=== PATIENT | female | born 1965 | race Caucasian/White ===

== ENCOUNTER → 2016-05-23 | Outpatient (CLI) | payer BC ==
--- NOTE | 2016-05-24 11:11 | MM ---
Reason for exam: screening (asymptomatic). Last mammogram was performed 1 year and 3 months ago. History: Patient is postmenopausal. Took progesterone for 1 year 6 months beginning at age 36. Physical Findings: A clinical breast exam by your physician is recommended on an annual basis and results should be correlated with mammographic findings. MG Screening Mammo w CAD Bilateral CC and MLO view(s) were taken. Prior study comparison: February 08, 2015, bilateral MG screening mammo w CAD. February 02, 2014, bilateral MG screening mammo w CAD. There are scattered fibroglandular densities. No significant changes when compared with prior studies. ASSESSMENT: Negative, BI-RAD 1 RECOMMENDATION: Routine screening mammogram of both breasts in 1 year.
== END ==
LOC: RADMAMWWP 07:46
PROVIDERS: ATTEND Obstetrics & Gynecology
DX: Z12.31 Encounter for screening mammogram for malignant neoplasm of breast (principal)

== ENCOUNTER → 2017-07-14 | Outpatient (CLI) | payer BC ==
--- NOTE | 2017-07-16 12:13 | MM ---
Reason for exam: screening (asymptomatic). Last mammogram was performed 1 year and 2 months ago. History: Patient is postmenopausal. Took progesterone for 1 year 6 months beginning at age 36. Physical Findings: A clinical breast exam by your physician is recommended on an annual basis and results should be correlated with mammographic findings. MG Screening Mammo w CAD Bilateral CC and MLO view(s) were taken. Prior study comparison: May 23, 2016, bilateral MG screening mammo w CAD. February 08, 2015, bilateral MG screening mammo w CAD. There are scattered fibroglandular densities. No suspicious abnormality. No significant changes when compared with prior studies. ASSESSMENT: Negative, BI-RAD 1 RECOMMENDATION: Routine screening mammogram of both breasts in 1 year.
== END | disposition home or self-care (01) ==
LOC: RADMAMWWP 11:50
PROVIDERS: ATTEND Obstetrics & Gynecology
DX: Z12.31 Encounter for screening mammogram for malignant neoplasm of breast (principal)
CPT/HCPCS: 77067

== ENCOUNTER → 2018-07-19 | Outpatient (CLI) | payer BC ==
--- NOTE | 2018-07-22 09:11 | MM ---
Reason for exam: screening (asymptomatic). Last mammogram was performed 1 year ago. History: Patient is postmenopausal. Took progesterone for 1 year 6 months beginning at age 36. Physical Findings: A clinical breast exam by your physician is recommended on an annual basis and results should be correlated with mammographic findings. MG Screening Mammo w CAD Bilateral CC and MLO view(s) were taken. Prior study comparison: July 14, 2017, bilateral MG screening mammo w CAD. May 23, 2016, bilateral MG screening mammo w CAD. The breast tissue is heterogeneously dense. This may lower the sensitivity of mammography. There is no discrete abnormality. ASSESSMENT: Negative, BI-RAD 1 RECOMMENDATION: Routine screening mammogram of both breasts in 1 year.
== END | disposition home or self-care (01) ==
LOC: RADMAMWWP 08:04
PROVIDERS: ATTEND Obstetrics & Gynecology
DX: Z12.31 Encounter for screening mammogram for malignant neoplasm of breast (principal)
CPT/HCPCS: 77067

== ENCOUNTER → 2019-10-31 | Outpatient (CLI) | payer BC ==
--- NOTE | 2019-11-04 08:20 | MM ---
Reason for exam: screening (asymptomatic). Last mammogram was performed 1 year and 3 months ago. History: Patient is postmenopausal. Took progesterone for 1 year 6 months beginning at age 36. Physical Findings: A clinical breast exam by your physician is recommended on an annual basis and results should be correlated with mammographic findings. MG Screening Mammo w CAD Bilateral CC and MLO view(s) were taken. Prior study comparison: July 19, 2018, bilateral MG screening mammo w CAD. July 14, 2017, bilateral MG screening mammo w CAD. There are scattered fibroglandular densities. There is chronic nodularity in the right breast. No significant changes when compared with prior studies. ASSESSMENT: Benign, BI-RAD 2 RECOMMENDATION: Routine screening mammogram of both breasts in 1 year.
== END | disposition home or self-care (01) ==
LOC: RADMAMWWP 15:42
PROVIDERS: ATTEND Obstetrics & Gynecology
DX: Z12.31 Encounter for screening mammogram for malignant neoplasm of breast (principal)
CPT/HCPCS: 77067

== ENCOUNTER 2020-07-01 06:51 | Day surgery (SDC) | payer BC ==
[2020-06-30 12:07] VITALS: BMI 32.5
[~2020-07-01 06:51] MED LIST: LACTATED RINGERS 1,000 ML IV SCH
[2020-07-01 07:15] VITALS: RESP 16; TEMP 97
[2020-07-01 07:31] LABS: Glucose,Whole Blood 124 mg/dL (75-99)
[2020-07-01] MEDS ORDERED: PROPOFOL 10 MG/ML 20 ML VIAL IV ONE (07:48)
--- NOTE | 2020-07-01 07:54 | P.GSHP ---
History of Present Illness H&P Date: 07/01/20 Chief Complaint: Diverticulitis Subjective 54-year-old female with history of diverticulitis. Patient presents today for colonoscopy. Past Medical History Past Medical History: Diabetes Mellitus, Hyperlipidemia, Hypertension Additional Past Medical History / Comment(s): TYPE 2 DIABETIC History of Any Multi-Drug Resistant Organisms: None Reported Past Surgical History: Section, Orthopedic Surgery, Uterine Ablation Additional Past Surgical History / Comment(s): ovarian cyst removal C SECECTION X2, RIGHT CARPAL TUNNEL RELEASE, LEFT CARPAL TUNNEL RELEASE, LEFT ELBOW SURGERY Past Anesthesia/Blood Transfusion Reactions: No Reported Reaction Smoking Status: Never smoker - Past Family History Brother(s) Family Medical History: Cancer Medications and Allergies Home Medications Medication Instructions Recorded Confirmed Type Aspirin 81 mg PO DAILY 06/30/20 06/30/20 History Dextroamphetamine/Amphetamine 30 mg PO BID 06/30/20 06/30/20 History [Adderall] Pravastatin Sodium [Pravachol] 40 mg PO HS 06/30/20 06/30/20 History Semaglutide [Ozempic] 1 mg SQ LAWTON 06/30/20 06/30/20 History Sertraline [Zoloft] 100 mg PO HS 06/30/20 06/30/20 History atenoloL [Atenolol] 50 mg PO BID 06/30/20 06/30/20 History Allergies Allergy/AdvReac Type Severity Reaction Status Date / Time No Known Allergies Allergy Verified 07/01/20 07:16 Surgical - Exam Vital Signs Temp Pulse Resp BP Pulse Ox 97 F L 70 16 174/89 97 07/01/20 07:13 07/01/20 07:13 07/01/20 07:13 07/01/20 07:13 07/01/20 07:13 - General well developed, well nourished, no distress - Eyes PERRL - ENT normal pinna - Neck no masses - Respiratory normal expansion - Cardiovascular Rhythm: regular - Abdomen Abdomen: soft, non tender Results - Labs Abnormal Lab Results - Last 24 Hours (Table) 07/01/20 Range/Units 07:21 POC Glucose (mg/dL) 124 H (75-99) mg/dL Assessment and Plan Assessment: Diverticulitis. We'll perform colonoscopy.
--- NOTE | 2020-07-01 08:08 | P.OP ---
Date of Procedure: 07/01/20 Preoperative Diagnosis: Diverticulitis Postoperative Diagnosis: Diverticulitis Procedure(s) Performed: Colonoscopy Anesthesia: MAC Surgeon: Anderson Hargrove Pathology: other (Sigmoid colon biopsied 25 cm) Condition: stable Disposition: PACU Description of Procedure: The patient's placed on the endoscopy table in the lateral position. She received IV sedation. Digital rectal exam was performed which revealed no abnormalities. Flexible colonoscope was then placed patient anus passed throughout the entire colon. The ileocecal valve sutures. The cecum, ascending and transverse colon appeared normal. The descending colon appeared normal. In the sigmoid colon there is diverticulosis seen. At the 25 cm hugo there was a mucosal inflammatory changes was biopsied with cold forcep. Scope was then brought back the rectum this appeared normal. Scope was withdrawn for patient.
[2020-07-01] MEDS ORDERED: hydrALAZINE HCL 20 MG/ML 1 ML VIAL ONE (08:49)
[2020-07-01] MEDS ORDERED: hydrALAZINE HCL 20 MG/ML 1 ML VIAL IVP ONE ×2 (08:50→08:53)
[2020-07-01 08:59] VITALS: BP 169/83; PULSE 78
== END 2020-07-01 09:12 | disposition home or self-care (01) ==
LOC: ORWHC2ENDO 06:51
PROVIDERS: ATTEND Surgery
DX: K57.32 Diverticulitis of large intestine without perforation or abscess without bleeding (principal); K57.30 Diverticulosis of large intestine without perforation or abscess without bleeding; E11.9 Type 2 diabetes mellitus without complications; E78.5 Hyperlipidemia, unspecified; I10 Essential (primary) hypertension; Z98.891 History of uterine scar from previous surgery; Z98.890 Other specified postprocedural states; Z80.9 Family history of malignant neoplasm, unspecified; F90.9 Attention-deficit hyperactivity disorder, unspecified type; F41.9 Anxiety disorder, unspecified; F32.9 Major depressive disorder, single episode, unspecified; Z79.82 Long term (current) use of aspirin; Z79.899 Other long term (current) drug therapy
CPT/HCPCS: 88305; 45380; J0360; J2704

== ENCOUNTER → 2020-07-16 | Outpatient (CLI) | payer BC ==
[2020-07-16 11:09] LABS: HCT 45.5 % (34.0-46.0); HGB 15.3 gm/dL (11.4-16.0); MCH 29.4 pg (25.0-35.0); MCHC 33.8 g/dL (31.0-37.0); MCV 87.1 fL (80.0-100.0); Mean Platelet Volume 6.4; Platelet Count 231 k/uL (150-450); RBC 5.22 m/uL (3.80-5.40); RDW 13.6 % (11.5-15.5); WBC 9.4 k/uL (3.8-10.6)
[2020-07-16 11:29] LABS: Potassium 4.3 mmol/L (3.5-5.1)
== END | disposition home or self-care (01) ==
LOC: LABPAT 09:23
PROVIDERS: ATTEND Surgery
DX: Z01.812 Encounter for preprocedural laboratory examination (principal); K57.33 Diverticulitis of large intestine without perforation or abscess with bleeding
CPT/HCPCS: 80051; 85027; 93005

== ENCOUNTER 2020-07-21 08:52 | Inpatient (IN) | payer BC ==
[~2020-07-21 08:52] MED LIST changes: +ACETAMINOPHEN TAB 500 MG TAB PO PRN; +DEXAMETHASONE SOD PHOSPHATE 4 MG/ML 1 ML VIAL IV PRN; +HEPARIN SODIUM,PORCINE 5,000 UNIT/ML 1 ML VIAL SQ PRN; +HYDROmorphone 0.5 MG/0.5 ML SYRINGE IVP PRN; -LACTATED RINGERS 1,000 ML IV SCH; +LIDOCAINE 1% (10MG/ML) FOR IV START INTRADERMA PRN; +MIDAZOLAM 2 MG/2 ML VIAL IV PRN; +ONDANSETRON 4 MG/2 ML VIAL IVP PRN; +fentaNYL (PF) 50 MCG/ML 2 ML AMP IVP PRN; +metroNIDAZOLE-NS PMX 500 MG in SALINE 1 100ML.BAG IVPB PRN
[2020-07-21] MEDS: LACTATED RINGERS 1,000 ML IV SCH ×2 (09:11→20:19)
[2020-07-21 09:25] LABS: Glucose,Whole Blood 238 mg/dL (75-99)
[2020-07-21] MEDS ORDERED: ACETAMINOPHEN IV (For NPO) 1,000 MG/100 ML VIAL IVPB ONE (09:41)
[2020-07-21] MEDS ORDERED: INSULIN ASPART (NovoLOG) 100 UNIT/ML VIAL SQ ONE (10:29)
--- NOTE | 2020-07-21 10:44 | P.GSHP ---
History of Present Illness H&P Date: 07/21/20 Chief Complaint: Diverticulitis This is a 54-year-old female with history of chronic diverticulitis. Patient rents today for low anterior section. Patient is aware the risks of colostomy. Past Medical History Past Medical History: Diabetes Mellitus, Hyperlipidemia, Hypertension Additional Past Medical History / Comment(s): DIVERTICULITIS. TYPE 2 DIABETIC History of Any Multi-Drug Resistant Organisms: None Reported Past Surgical History: Section, Orthopedic Surgery, Uterine Ablation Additional Past Surgical History / Comment(s): ovarian cyst removal C SECECTION X2, RIGHT CARPAL TUNNEL RELEASE, LEFT CARPAL TUNNEL RELEASE, LEFT ELBOW SURGERY Past Anesthesia/Blood Transfusion Reactions: No Reported Reaction Past Psychological History: ADD/ADHD, Anxiety, Depression Smoking Status: Never smoker Past Alcohol Use History: Occasional Past Drug Use History: None Reported - Past Family History Brother(s) Family Medical History: Cancer Medications and Allergies Home Medications Medication Instructions Recorded Confirmed Type Aspirin 81 mg PO DAILY 06/30/20 07/21/20 History Dextroamphetamine/Amphetamine 30 mg PO BID 06/30/20 07/21/20 History [Adderall] Pravastatin Sodium [Pravachol] 40 mg PO HS 06/30/20 07/21/20 History Semaglutide [Ozempic] 1 mg SQ LAWTON 06/30/20 07/21/20 History Sertraline [Zoloft] 100 mg PO HS 06/30/20 07/21/20 History atenoloL [Atenolol] 50 mg PO BID 06/30/20 07/21/20 History Allergies Allergy/AdvReac Type Severity Reaction Status Date / Time No Known Allergies Allergy Verified 07/21/20 09:09 Surgical - Exam Vital Signs Temp Pulse Resp BP Pulse Ox 97.4 F L 84 16 179/81 96 07/21/20 09:06 07/21/20 09:06 07/21/20 09:06 07/21/20 09:06 07/21/20 09:06 - General well developed, well nourished, no distress - Eyes PERRL - ENT normal pinna - Neck no masses - Respiratory normal expansion - Cardiovascular Rhythm: regular - Abdomen Abdomen: soft, non tender Results - Labs Abnormal Lab Results - Last 24 Hours (Table) 07/21/20 Range/Units 09:21 POC Glucose (mg/dL) 238 H (75-99) mg/dL Assessment and Plan Assessment: History of diverticular placed. We'll perform low anterior resection.
[2020-07-21] MEDS ORDERED: SUCCINYLCHOLINE CHLORIDE 100 MG/5 ML SYR IV ONE (11:06)
[2020-07-21] MEDS ORDERED: ROCURONIUM 10 MG/ML (5 ML VIAL) IV ONE (11:06)
[2020-07-21] MEDS ORDERED: fentaNYL (PF) 50 MCG/ML 2 ML AMP ONE (11:06)
[2020-07-21] MEDS ORDERED: NEOSTIGMINE 1 MG/ML 10 ML VIAL ONE (11:06)
[2020-07-21] MEDS ORDERED: LIDOCAINE 1% INJ 10MG/ML (20 ML MDV) ONE (11:06)
[2020-07-21] MEDS ORDERED: GLYCOPYRROLATE 0.2 MG/ML 2 ML VIAL ONE (11:06)
[2020-07-21] MEDS ORDERED: KETAMINE 10 MG/ML 20 ML VIAL ONE (11:06)
[2020-07-21] MEDS ORDERED: PHENYLEPHRINE-0.9% NACL SYG 1,000 MCG/10 ML SYRINGE ONE (11:06)
[2020-07-21] MEDS ORDERED: PROPOFOL 10 MG/ML 20 ML VIAL IV ONE (11:06)
[2020-07-21] MEDS ORDERED: NALOXONE 0.4 MG/ML 1 ML VIAL IV PRN (11:43)
--- NOTE | 2020-07-21 11:46 | P.ANPRN ---
Procedure Note - Anesthesia - Epidural/Spinal Epidural Continuous Time Out Performed: Yes Date of Procedure: 07/21/20 Procedure Start Time: 09:58 Procedure Stop Time: 10:16 Location of Patient: PreOp Indication: Acute Post-Operative Pain, Requested by Surgeon Sedation Type: Sedate with meaningful contact maintained Preparation: Sterile Dressing Position: Sitting Catheter: Indwelling Needle Guage: 18 Injectate: Test Dose Lidocaine1.5% w/1:200,000 epi Blood Aspirated: No Pain Paresthesia on Injection Noted: No Events: Uneventful and Well Tolerated (test dose 3cc given)
[2020-07-21] MEDS ORDERED: LACTATED RINGERS 1,000 ML IV ONE (11:49)
[2020-07-21] MEDS ORDERED: HYDROmorphone 1 MG/ML 1 ML SYRINGE IVP PRN (12:50)
[2020-07-21] MEDS ORDERED: METOCLOPRAMIDE 5 MG/ML 2 ML VIAL IVP PRN (12:50)
[2020-07-21] MEDS ORDERED: BENZOCAINE/MENTHOL LOZENG 1 EACH LOZENGE MUCOUS MEM PRN (12:50)
[2020-07-21] MEDS ORDERED: ONDANSETRON 4 MG/2 ML VIAL IVP PRN (12:50)
--- NOTE | 2020-07-21 12:50 | P.OP ---
Date of Procedure: 07/21/20 Preoperative Diagnosis: Diverticulitis Postoperative Diagnosis: Diverticulitis Incisional hernia Procedure(s) Performed: Low anterior section Partial omentectomy Repair of incisional hernia Anesthesia: ISIDRA Surgeon: Anderson Hargrove Estimated Blood Loss (ml): 100 Pathology: other (Sigmoid colon, omentum) Condition: stable Disposition: PACU Description of Procedure: The patient's placed on the operating table in supine position. She received general anesthesia. Her abdomen was prepped and draped in sterile fashion. She had been placed in dorsal 5 position. The area was entered through a low midline incision. There is evidence of incisional hernia related to previous Pfannenstiel incision. The abdomen was entered. The Bookwalter tract placed a wound. There were adhesions to the abdominal wall these were lysed with sharp dissection. There also adhesions the small bowel pelvis. These were lysed. At this point the; was mobilized by dividing the white line of Toldt in the left colon was also mobilized. The area diverticula is could be visualized distal sigmoid. At this point a enterotomy is made in the sigmoid colon and the 25 mm EEA stapler was placed into the colon. The colon was then transected and the EEA stapler was driven through the staple line. There enterotomy is closed with 3-0 GI silk suture. The mesentery the bowel was then divided using the Enseal device. The mesorectum was divided with insulin I's. And then the rectum was transected with the EEA stapler. The assistant manager bilingual then placed the EEA stapler patient's anus and the spike was driven through the rectal staple line. The endoscope to the stapler the stapler is then closed and fired and 2 intact tissue rings were withdrawn from the stapler. The anastomosis was checked under air insufflation. There is no unsteady leak. There is bleeding. No bleeding seen. The omentum was examined the omentum appeared to be partially nonviable and a segment of omentum was transected with the incidental device and sent to pathology. The fascia was then closed with looped #1 PDS suture. Skin was closed ayan. Patient top she will was sent to recovery room stable condition.
[2020-07-21 13:13] LABS: Glucose,Whole Blood 185 mg/dL (75-99)
[2020-07-21] MEDS: ROPIVACAINE 250 MG, HYDROMORPHONE (PF) 5 MG in SODIUM CHLORIDE 0.9% 200 ML EPIDURAL PRN (13:18)
[2020-07-21] MEDS: FAMOTIDINE 20 MG/2 ML VIAL IV SCH (21:10)
[2020-07-21] MEDS: D5-0.45% NACL WITH KCL 20MEQ/L 1,000 ML IV SCH (21:10)
[2020-07-21] MEDS: atenoloL 25 MG TAB PO SCH (21:35)
--- NOTE | 2020-07-21 22:03 | P.CONS ---
History of Present Illness - Reason for Consult Consult date: 07/21/20 Medical management Requesting physician: Anderson Hargrove - Chief Complaint Abdominal surgery - History of Present Illness Consultation: This is a pleasant 54-year-old patient of Dr. an. Chronic stable medical conditions include diabetes type 2, hypertension, hyperlipidemia. Patient the prior history of Dr. Zayas. Also has not anxiety depression. Patient has: T tom low anterior resection, partial omentectomy, repair of incisional hernia. Postprocedure sitting up in a chair. Has an epidural in place. No nausea vomiting. Some pain at the operative site. Review of systems: GEN.: Tired EYES: None HEENT: None NECK: None RESPIRATORY: None CARDIOVASCULAR: None GASTROINTESTINAL: [As above GENITOURINARY: None MUSCULOSKELETAL: None LYMPHATICS: None HEMATOLOGICAL: None PSYCHIATRY: None NEUROLOGICAL: None Past medical history to include: Diabetes, hypertension, hyperlipidemia, diverticulitis, anxiety depression Social history: Does not smoke or drink alcohol occasionally. . Physical examination: VITAL SIGNS: 98.3, 87, 15, 125 [place] 7, 94% on room air GENERAL: BMI 32.1, sitting up in chair, right. Epidural in place EYES: Pupils equal. Conjunctiva normal. HEENT: External appearance of nose and ears normal, oral cavity grossly normal. NECK: JVD not raised; masses not palpable. HEART: First and second heart sounds are normal; no edema. LUNGS: Respiratory rate normal; clear to auscultation. ABDOMEN: Soft, tender, dressing in place, decreased bowel sounds, liver spleen not palpable, no masses palpable. PSYCH: Alert and oriented x3; mood and affect normal. NEUROLOGICAL: Cranial nerves grossly intact; no facial asymmetry, power and sensation grossly intact. LYMPHATICS: No lymph nodes palpable in the axilla and neck INVESTIGATIONS, reviewed in the clinical context: Accu-Cheks to 38, 185 Previous testing: White count 9.4 hemoglobin 15.3 potassium 4.3 Assessment and plan: -Low anterior resection for prior history of diverticulitis -Obesity BMI 32.1 -Diabetes mellitus type 2, follow Accu-Cheks patient takes was empiric -Hyperlipidemia, continue Pravachol -Essential hypertension, continue atenolol -Anxiety depression otherwise specified, continue with Zoloft, Patient getting IV fluids. Venodyne boots for DVT prophylaxis. Epidural for pain control. Care was discussed with the patient. Questions answered. Thank you Dr. Hargrove Past Medical History Past Medical History: Diabetes Mellitus, Hyperlipidemia, Hypertension Additional Past Medical History / Comment(s): DIVERTICULITIS. TYPE 2 DIABETIC History of Any Multi-Drug Resistant Organisms: None Reported Past Surgical History: Section, Orthopedic Surgery, Uterine Ablation Additional Past Surgical History / Comment(s): ovarian cyst removal C SECECTION X2, RIGHT CARPAL TUNNEL RELEASE, LEFT CARPAL TUNNEL RELEASE, LEFT ELBOW SURGERY Past Anesthesia/Blood Transfusion Reactions: No Reported Reaction Past Psychological History: ADD/ADHD, Anxiety, Depression Smoking Status: Never smoker Past Alcohol Use History: Occasional Past Drug Use History: None Reported - Past Family History Brother(s) Family Medical History: Cancer Medications and Allergies Home Medications Medication Instructions Recorded Confirmed Type Aspirin 81 mg PO DAILY 06/30/20 07/21/20 History Dextroamphetamine/Amphetamine 30 mg PO BID 06/30/20 07/21/20 History [Adderall] Pravastatin Sodium [Pravachol] 40 mg PO HS 06/30/20 07/21/20 History Semaglutide [Ozempic] 1 mg SQ LAWTON 06/30/20 07/21/20 History Sertraline [Zoloft] 100 mg PO HS 06/30/20 07/21/20 History atenoloL [Atenolol] 50 mg PO BID 06/30/20 07/21/20 History Allergies Allergy/AdvReac Type Severity Reaction Status Date / Time No Known Allergies Allergy Verified 07/21/20 09:09 Physical Exam Vitals: Vital Signs Temp Pulse Resp BP Pulse Ox 07/21/20 20:21 98.3 F 87 15 125/67 94 L 07/21/20 17:30 83 18 120/60 98 07/21/20 16:30 89 16 131/66 97 07/21/20 15:30 95 16 128/66 96 07/21/20 15:00 92 16 127/63 96 07/21/20 14:30 86 16 144/71 97 07/21/20 14:15 84 16 153/66 96 07/21/20 14:00 83 16 152/67 96 07/21/20 13:45 80 16 172/77 96 07/21/20 13:30 80 16 162/73 100 07/21/20 13:15 75 16 163/73 100 07/21/20 13:04 97.6 F 71 14 184/81 99 07/21/20 10:15 73 16 144/65 96 07/21/20 09:06 97.4 F L 84 16 179/81 96 Intake and Output 07/21/20 07/21/20 07/21/20 06:59 14:59 22:59 Intake Total 1207 800 Output Total 402 700 Balance 805 100 Intake: IV 1207 800 Output: Urine 202 700 Estimated Blood Loss 200 Other: Weight 84.7 kg Results Labs: Abnormal Lab Results - Last 24 Hours (Table) 07/21/20 07/21/20 Range/Units 09:21 13:11 POC Glucose (mg/dL) 238 H 185 H (75-99) mg/dL
[2020-07-21] MEDS: HEPARIN SODIUM,PORCINE 5,000 UNIT/ML 1 ML VIAL SQ SCH (23:58)
[2020-07-22] MEDS: D5-0.45% NACL WITH KCL 20MEQ/L 1,000 ML IV SCH ×2 (04:07→14:34)
--- NOTE | 2020-07-22 06:46 | P.PN ---
Progress Note - Text Patient without complaints. Still NPO. Denies headache or weakness. Pain 2/10. Epidural at 6 ml/hr. Epidural site clean and dry. POD#1 s/p LAR. Assessment and plan: will continue epidural
[2020-07-22 07:21] LABS: Glucose,Whole Blood 153 mg/dL (75-99)
[2020-07-22] MEDS: atenoloL 25 MG TAB PO SCH ×2 (08:01→20:40)
[2020-07-22] MEDS: HEPARIN SODIUM,PORCINE 5,000 UNIT/ML 1 ML VIAL SQ SCH ×3 (08:01→23:34)
[2020-07-22] MEDS: ASPIRIN 81 MG PO SCH (08:01)
[2020-07-22] MEDS: FAMOTIDINE 20 MG/2 ML VIAL IV SCH ×2 (08:01→20:40)
[2020-07-22] MEDS: ALVIMOPAN 12 MG CAPSULE PO SCH ×2 (08:01→20:40)
[2020-07-22] MEDS ORDERED: Dextroamphetamine/Amphetamine [Adderall] 30 MG Tablet PO SCH (09:00)
[2020-07-22 11:05] LABS: Basophils # (A) 0.03 X 10*3/uL (0.00-0.10); Basophils % (A) 0.2 %; Eosinophils # (A) 0.01 X 10*3/uL (0.04-0.35); Eosinophils % (A) 0.1 %; HCT 38.7 % (37.2-46.3); HGB 12.5 g/dL (12.0-15.0); Lymphocytes # (A) 2.07 X 10*3/uL (0.90-5.00); Lymphocytes % (A) 13.1 %; MCH 29.4 pg (27.0-32.0); MCHC 32.3 g/dL (32.0-37.0); MCV 91.1 fL (80.0-97.0); Mean Platelet Volume 9.6 fL (9.5-12.2); Monocytes # (A) 1.25 X 10*3/uL (0.20-1.00); Monocytes % (A) 7.9 %; Neutrophils % (A) 78.3 %; Platelet Count 260 X 10*3/uL (140-440); RBC 4.25 X 10*6/uL (4.10-5.20); RDW 13.6 % (11.5-14.5); WBC 15.83 X 10*3/uL (4.50-10.00)
[2020-07-22 11:27] LABS: African American GFR (CKD) 95.5 (60.0-200.0); Albumin 4.1 g/dL (3.80-4.90); Albumin/Globulin Ratio 1.95 (1.60-3.17); Anion Gap 11.1 mmol/L (4.00-12.00); BUN/Creat Ratio 18.75 Ratio (12.00-20.00); Calcium 8.9 mg/dL (8.7-10.3); Carbon Dioxide 24.9 mmol/L (21.6-31.8); Globulin 2.1 g/dL (1.6-3.3); Non-African American GFR(CKD) 82.4 (60.0-200.0); Potassium 4.4 mmol/L (3.5-5.5); Total Bilirubin 0.6 mg/dL (0.2-1.2); Total Protein 6.2 g/dL (6.2-8.2)
[2020-07-22] MEDS ORDERED: diphenhydrAMINE ELIXIR 25 MG/10 ML CUP PO PRN (13:11)
--- NOTE | 2020-07-22 13:13 | P.PN ---
Subjective Progress Note Date: 07/22/20 CHIEF COMPLAINT: Diverticulitis HISTORY OF PRESENT ILLNESS: Patient is status post lower anterior resection, partial omentectomy and repair of incisional hernia for diverticulitis and incisional hernia. She is postop day #1. She has epidural in place. She reports that her pain is controlled. She did have some nausea which has improved. She denies any gas or bowel movement. She is currently on clear liquids. Patient is complaining of itching likely due to the epidural. Patient has refused the entereg. She reports that she does not like to take pills. Afebrile. WBC 15.83 Hgb 12.5 creatinine 0.8 AST 47 PHYSICAL EXAM: VITAL SIGNS: Reviewed. GENERAL: Well-developed in no acute distress. HEENT: No sclera icterus. Extraocular movements grossly intact. Moist buccal mucosa. Head is atraumatic, normocephalic. ABDOMEN: Soft. Nondistended. Nontender. NEUROLOGIC: Alert and oriented. Cranial nerves II through XII grossly intact. ASSESSMENT: 1. Diverticulitis and incisional hernia status post lower anterior resection, partial omentectomy and repair of incisional hernia 2. Leukocytosis possibly reactive patient did get a dose of IV dexamethasone 3. History of diabetes mellitus type 2 PLAN: -Continue epidural for pain control -Continue Fleming catheter -Encourage incentive spirometer use -Continue IV fluids . We'll change IV fluids to normal saline. Patient does have elevated blood sugars possibly related to D5 in the IV fluids and history of diabetes. -Add Humalog insulin sliding scale -GI prophylaxis Pepcid and DVT prophylaxis subcu heparin Physician Newspaper Manager note has been reviewed by physician. Signing provider agrees with the documented findings, assessment, and plan of care. Objective - Vital Signs Vital signs: Vital Signs Temp 98.4 F 07/22/20 07:45 Pulse 93 07/22/20 07:45 Resp 16 07/22/20 07:45 BP 109/66 07/22/20 07:45 Pulse Ox 92 L 07/22/20 07:45 Intake & Output 07/21/20 07/22/20 07/22/20 18:59 06:59 18:59 Intake Total 2006 Output Total 1102 300 Balance 905 -300 Weight 84.7 kg 84.7 kg Intake: IV 2006 Output: Urine 902 300 Estimated Blood Loss 200 Other: Voiding Method Indwelling Catheter Indwelling Catheter - Labs CBC & Chem 7: 07/22/20 06:52 07/22/20 06:52 Labs: Abnormal Lab Results - Last 24 Hours (Table) 07/21/20 07/22/20 07/22/20 Range/Units 13:11 06:52 06:52 WBC 15.83 H (4.50-10.00) X 10*3/uL Immature Gran # 0.07 H (0.00-0.04) X 10*3/uL Neutrophils # 12.40 H (1.80-7.70) X 10*3/uL Monocytes # 1.25 H (0.20-1.00) X 10*3/uL Eosinophils # 0.01 L (0.04-0.35) X 10*3/uL Glucose 170 H (70-110) mg/dL POC Glucose (mg/dL) 185 H (75-99) mg/dL AST 47 H (13-35) U/L 07/22/20 Range/Units 07:08 WBC (4.50-10.00) X 10*3/uL Immature Gran # (0.00-0.04) X 10*3/uL Neutrophils # (1.80-7.70) X 10*3/uL Monocytes # (0.20-1.00) X 10*3/uL Eosinophils # (0.04-0.35) X 10*3/uL Glucose (70-110) mg/dL POC Glucose (mg/dL) 153 H (75-99) mg/dL AST (13-35) U/L
[2020-07-22] MEDS: SODIUM CHLORIDE 0.9% 1,000 ML IV SCH ×2 (15:04→20:40)
[2020-07-22] MEDS: PIPERACILLIN-TAZOBACTAM 3.375 GM in SODIUM CHLORIDE 0.9% 100 ML IVPB SCH ×2 (16:22→23:34)
[2020-07-22 17:44] LABS: Glucose,Whole Blood 108 mg/dL (75-99)
[2020-07-22] MEDS: INSULIN ASPART (NovoLOG) 100 UNIT/ML VIAL SQ SCH ×2 (19:01→20:42)
[2020-07-22] MEDS: LACTATED RINGERS 1,000 ML IV SCH (19:01)
[2020-07-22] MEDS: SERTRALINE 100 MG TAB PO SCH (20:40)
[2020-07-22] MEDS: PRAVASTATIN SODIUM 40 MG TAB PO SCH (20:40)
[2020-07-22 20:50] LABS: Glucose,Whole Blood 78 mg/dL (75-99)
--- NOTE | 2020-07-22 21:27 | P.PN ---
Progress Note - Text Progress Note Date: 07/22/20 - Chief Complaint Abdominal surgery Consultation: This is a pleasant 54-year-old patient of Dr. an. Chronic stable medical conditions include diabetes type 2, hypertension, hyperlipidemia. anxiety depression. Patient has: Today low anterior resection, partial omentectomy, repair of incisional hernia. Postprocedure sitting up in a chair. Has an epidural in place. Today-sitting up in a chair. Epidural in place. Pain control. No flatus. Started on clear liquids. Review of systems: Was done for constitutional, cardiovascular, GI, pulmonary. relevant finding as above Active Medications Alvimopan (Alvimopan 12 Mg Capsule) 12 mg PO BID [facility] Stop: 07/28/20 21:01 Last Admin: 07/22/20 20:40 Dose: 12 mg Documented by: Aspirin (Aspirin 81 Mg) 81 mg PO DAILY [facility] Last Admin: 07/22/20 08:01 Dose: 81 mg Documented by: Atenolol (Atenolol 25 Mg Tab) 50 mg PO BID [facility] Last Admin: 07/22/20 20:40 Dose: 50 mg Documented by: Benzocaine/Menthol (Benzocaine/Menthol Lozeng 1 Each Lozenge) 1 each MUCOUS MEM Q1HR PRN PRN Reason: Sore Throat Diphenhydramine HCl (Diphenhydramine Elixir 25 Mg/10 Ml Cup) 25 mg PO BID PRN PRN Reason: Itching Last Admin: 07/22/20 15:04 Dose: 25 mg Documented by: Famotidine (Famotidine 20 Mg/2 Ml Vial) 20 mg IV BID [facility] Last Admin: 07/22/20 20:40 Dose: 20 mg Documented by: Heparin Sodium (Porcine) (Heparin Sodium,Porcine 5,000 Unit/Ml 1 Ml Vial) 5,000 unit SQ Q8HR [facility] Last Admin: 07/22/20 16:22 Dose: 5,000 unit Documented by: Hydromorphone HCl (Hydromorphone 1 Mg/Ml 1 Ml Syringe) 1 mg IVP Q3HR PRN PRN Reason: Severe Pain Lactated Ringer's (Lactated Ringers) 1,000 mls @ 20 mls/hr IV .Q24H [facility] Last Admin: 07/22/20 19:01 Dose: Not Given Documented by: Ropivacaine 250 mg/Hydromorphone HCl 5 mg/ Sodium Chloride 250 mls @ 0 mls/hr EPIDURAL .Q0M PRN; Protocol PRN Reason: Pain Control Last Admin: 07/21/20 13:18 Dose: 57 mls Documented by: Sodium Chloride (Saline 0.9%) 1,000 mls @ 125 mls/hr IV .Q8H [facility] Last Admin: 07/22/20 20:40 Dose: Not Given Documented by: Piperacillin Sod/Tazobactam (Sod 3.375 gm/ Sodium Chloride) 100 mls @ 25 mls/hr IVPB Q8HR [facility] Last Admin: 07/22/20 16:22 Dose: 25 mls/hr Documented by: Insulin Aspart (Insulin Aspart (Novolog) 100 Unit/Ml Vial) 0 unit SQ [facility]; Protocol Last Admin: 07/22/20 20:42 Dose: Not Given Documented by: Lidocaine HCl (Lidocaine 1% (10mg/Ml) For Iv Start) 0.1 ml INTRADERMA PER PROTOCOL PRN PRN Reason: IV Start Last Admin: 07/21/20 09:11 Dose: 0.1 ml Documented by: Metoclopramide HCl (Metoclopramide 5 Mg/Ml 2 Ml Vial) 10 mg IVP Q6HR PRN PRN Reason: Nausea and Vomiting Last Admin: 07/21/20 21:35 Dose: 10 mg Documented by: Naloxone HCl (Naloxone 0.4 Mg/Ml 1 Ml Vial) 0.2 mg IV Q2M PRN PRN Reason: Opioid Reversal Semaglutide [Ozempic ] 1 Mg/0.75 Ml Pen. Injctr 1 mg SQ Galvan@0900 [facility] Ondansetron HCl (Ondansetron 4 Mg/2 Ml Vial) 4 mg IVP Q8HR PRN PRN Reason: Nausea And Vomiting Pravastatin Sodium (Pravastatin Sodium 40 Mg Tab) 40 mg PO [facility] Last Admin: 07/22/20 20:40 Dose: 40 mg Documented by: Sertraline HCl (Sertraline 100 Mg Tab) 100 mg PO [facility] Last Admin: 07/22/20 20:40 Dose: 100 mg Documented by: Past medical history to include: Diabetes, hypertension, hyperlipidemia, diverticulitis, anxiety depression Social history: Does not smoke or drink alcohol occasionally. . Physical examination: VITAL SIGNS: 98.4, 93, 16, 109/66, 92% on room air GENERAL: , sitting up in chair, right. Epidural in place EYES: Pupils equal. Conjunctiva normal. HEENT: External appearance of nose and ears normal, oral cavity grossly normal. NECK: JVD not raised; masses not palpable. HEART: First and second heart sounds are normal; no edema. LUNGS: Respiratory rate normal; clear to auscultation. ABDOMEN: Soft, tender, dressing in place, decreased bowel sounds, liver spleen not palpable, no masses palpable. PSYCH: Alert and oriented x3; mood and affect normal. INVESTIGATIONS, reviewed in the clinical context: July 22: WBC 15.8 hemoglobin 12.5 potassium 4.4 creatinine 0.8 Accu-Cheks to 38, 185 Previous testing: White count 9.4 hemoglobin 15.3 potassium 4.3 Assessment and plan: -Low anterior resection for prior history of diverticulitis, with epidural in place -Obesity BMI 32.1 -Diabetes mellitus type 2, follow Accu-Cheks patient takes Ozempic -Hyperlipidemia, continue Pravachol -Essential hypertension, continue atenolol -Anxiety depression otherwise specified, continue with Zoloft, -Leukocytosis from surgery. No clinical evidence of infection Care was discussed with the patient. Continue current treatment plan Thank you Dr. Hargrove
[2020-07-22] MEDS: ROPIVACAINE 250 MG, HYDROMORPHONE (PF) 5 MG in SODIUM CHLORIDE 0.9% 200 ML EPIDURAL PRN (22:52)
[2020-07-23] MEDS: SODIUM CHLORIDE 0.9% 1,000 ML IV SCH ×3 (04:44→22:39)
[2020-07-23 07:06] LABS: Glucose,Whole Blood 171 mg/dL (75-99)
--- NOTE | 2020-07-23 07:42 | P.PN ---
Progress Note - Text Progress Note Date: 07/23/20 Anesthesia Postop day 2 Status post oh anterior resection with epidural day 3 Patient seen and examined. Doing well without current complaint. VAS 2 out of 10. No nausea or vomiting. Mild pruritustolerable with meds. Ropivacaine 0.1% with Dilaudid 20 mcg/mL at 6 mL an hour. Objective: Vital signs reviewed Lungs: Good chest excursion Abdomen: Appears nondistended Other: Epidural spinal site nonindurated. No exudate. Tegaderm has peeled up and tape has been removed to expose catheter. Communicated with nurse to have epidural removed. Order placed Neuro: No apparent motor block. Sensory within normal limits. Assessment: Status post low anterior resection postoperative day 2 Plan: Epidural catheter to be removed this morning. Heparin subcu last given 2333 last night platelets 260
[2020-07-23] MEDS: ASPIRIN 81 MG PO SCH (07:46)
[2020-07-23] MEDS: atenoloL 25 MG TAB PO SCH ×2 (07:46→20:48)
[2020-07-23] MEDS: INSULIN ASPART (NovoLOG) 100 UNIT/ML VIAL SQ SCH ×4 (07:47→20:48)
[2020-07-23] MEDS: HEPARIN SODIUM,PORCINE 5,000 UNIT/ML 1 ML VIAL SQ SCH ×3 (07:47→23:10)
[2020-07-23] MEDS: ALVIMOPAN 12 MG CAPSULE PO SCH ×2 (07:47→20:47)
[2020-07-23] MEDS: FAMOTIDINE 20 MG/2 ML VIAL IV SCH ×2 (07:47→20:48)
[2020-07-23 08:41] LABS: ALT 35 U/L (4-34); AST 52 U/L (14-36); African American GFR (CKD) >90 (>60 ml/min/1.73 sqM); Albumin/Globulin Ratio 1.4; Alkaline Phosphatase 94 U/L (38-126); Anion Gap 11 mmol/L; Basophils % (A) 0 %; Blood Urea Nitrogen 10 mg/dL (7-17); Carbon Dioxide 21 mmol/L (22-30); Chloride 101 mmol/L (98-107); Eosinophils # (A) 0.2 k/uL (0-0.7); Eosinophils % (A) 1 %; Globulin 2.8 g/dL; Glucose 202 mg/dL (74-99); HCT 38.9 % (34.0-46.0); HGB 13.1 gm/dL (11.4-16.0); Lymphocytes # (A) 1.6 k/uL (1.0-4.8); Lymphocytes % (A) 10 %; MCH 30.1 pg (25.0-35.0); MCHC 33.7 g/dL (31.0-37.0); MCV 89.3 fL (80.0-100.0); Mean Platelet Volume 7.1; Monocytes # (A) 0.7 k/uL (0-1.0); Monocytes % (A) 5 %; Neutrophils # (A) 13.3 k/uL (1.3-7.7); Neutrophils % (A) 83 %; Non-African American GFR(CKD) >90 (>60 ml/min/1.73 sqM); Platelet Count 191 k/uL (150-450); RBC 4.36 m/uL (3.80-5.40); RDW 13.9 % (11.5-15.5); Sodium 133 mmol/L (137-145); Total Protein 6.8 g/dL (6.3-8.2); WBC 15.9 k/uL (3.8-10.6)
[2020-07-23 08:59] LABS: Potassium 4.4 mmol/L (3.5-5.1)
[2020-07-23] MEDS: PIPERACILLIN-TAZOBACTAM 3.375 GM in SODIUM CHLORIDE 0.9% 100 ML IVPB SCH ×3 (09:23→23:10)
[2020-07-23] MEDS ORDERED: ACETAMINOPHEN TAB 325 MG TAB PO PRN (09:24)
[2020-07-23 11:33] LABS: Glucose,Whole Blood 158 mg/dL (75-99)
--- NOTE | 2020-07-23 13:02 | P.PN ---
Subjective Progress Note Date: 07/23/20 CHIEF COMPLAINT: Diverticulitis HISTORY OF PRESENT ILLNESS: Patient is status post lower anterior resection, partial omentectomy and repair of incisional hernia for diverticulitis and incisional hernia. She is postop day #2. Epidural and Fleming catheter discontinued today. Patient did have a temp of 101.2 early this morning. She denies any abdominal pain. Denies any nausea or vomiting. Denies any shortness of breath or significant cough. She denies passing gas or bowel movement. WBC 15.9 Hgb 13.1 PHYSICAL EXAM: VITAL SIGNS: Reviewed. GENERAL: Well-developed in no acute distress. HEENT: No sclera icterus. Extraocular movements grossly intact. Moist buccal mucosa. Head is atraumatic, normocephalic. ABDOMEN: Soft. Nondistended. Incision site clean dry and intact patient did have some blood saturation on the bandage. This was removed and new bandage placed NEUROLOGIC: Alert and oriented. Cranial nerves II through XII grossly intact. ASSESSMENT: 1. Diverticulitis and incisional hernia status post lower anterior resection, partial omentectomy and repair of incisional hernia 2. Leukocytosis 3. History of diabetes mellitus type 2 PLAN: -Epidural Fleming catheter discontinued -Add Tylenol as needed for fever -Add liquid [place] for pain as needed. Patient does not like to take the pill form. -Encourage incentive spirometer use and to ambulate -Continue IV fluids -Continue Humalog insulin sliding scale -GI prophylaxis Pepcid and DVT prophylaxis subcu heparin Physician Heel Former note has been reviewed by physician. Signing provider agrees with the documented findings, assessment, and plan of care. Objective - Vital Signs Vital signs: Vital Signs Temp 98.6 F 07/23/20 11:03 Pulse 101 H 07/23/20 07:55 Resp 18 07/23/20 07:55 BP 164/79 07/23/20 07:55 Pulse Ox 95 07/23/20 11:03 Intake & Output 07/22/20 07/23/20 07/23/20 18:59 06:59 18:59 Intake Total 1250 Output Total 700 900 Balance 550 -900 Intake: Intake, IV Titration 1250 Amount Sodium Chloride 0.9% 1, 1250 000 ml @ 125 mls/hr IV . Q8H [facility] Rx#:[id number] Output: Urine 700 900 Other: Voiding Method Indwelling Catheter Indwelling Catheter Indwelling Catheter - Labs CBC & Chem 7: 07/23/20 08:12 07/23/20 08:12 Labs: Abnormal Lab Results - Last 24 Hours (Table) 07/22/20 07/23/20 07/23/20 Range/Units 17:40 06:58 08:12 WBC 15.9 H (3.8-10.6) k/uL Neutrophils # 13.3 H (1.3-7.7) k/uL Sodium (137-145) mmol/L Carbon Dioxide (22-30) mmol/L Glucose (74-99) mg/dL POC Glucose (mg/dL) 108 H 171 H (75-99) mg/dL AST (14-36) U/L ALT (4-34) U/L 07/23/20 07/23/20 Range/Units 08:12 11:29 WBC (3.8-10.6) k/uL Neutrophils # (1.3-7.7) k/uL Sodium 133 L (137-145) mmol/L Carbon Dioxide 21 L (22-30) mmol/L Glucose 202 H (74-99) mg/dL POC Glucose (mg/dL) 158 H (75-99) mg/dL AST 52 H (14-36) U/L ALT 35 H (4-34) U/L
[2020-07-23 16:52] LABS: Glucose,Whole Blood 158 mg/dL (75-99)
[2020-07-23] MEDS: LACTATED RINGERS 1,000 ML IV SCH (17:24)
[2020-07-23 20:36] LABS: Glucose,Whole Blood 122 mg/dL (75-99)
[2020-07-23] MEDS: PRAVASTATIN SODIUM 40 MG TAB PO SCH (20:47)
[2020-07-23] MEDS: HYDROcodone/APAP 15 ML SOLUTION PO PRN (20:47)
[2020-07-23] MEDS: SERTRALINE 100 MG TAB PO SCH (20:47)
--- NOTE | 2020-07-23 21:57 | P.PN ---
Progress Note - Text Progress Note Date: 07/23/20 - Chief Complaint Abdominal surgery Consultation: This is a pleasant 54-year-old patient of Dr. an. Chronic stable medical conditions include diabetes type 2, hypertension, hyperlipidemia. anxiety depression. Patient has: Today low anterior resection, partial omentectomy, repair of incisional hernia. Postprocedure sitting up in a chair. Has an epidural in place. Today-sitting at the edge of the bed. Tolerating clear liquids. No flatus. Epidural discontinued. No nausea vomiting. Review of systems: Was done for constitutional, cardiovascular, GI, pulmonary. relevant finding as above Active Medications Acetaminophen (Acetaminophen Tab 325 Mg Tab) 650 mg PO Q6HR PRN PRN Reason: Fever and/ or Pain Last Admin: 07/23/20 10:29 Dose: 650 mg Documented by: Hydrocodone Bitart/Acetaminophen (Hydrocodone/Apap 15 Ml Solution) 15 ml PO Q6H PRN PRN Reason: Pain Last Admin: 07/23/20 20:47 Dose: 15 ml Documented by: Alvimopan (Alvimopan 12 Mg Capsule) 12 mg PO BID [facility] Stop: 07/28/20 21:01 Last Admin: 07/23/20 20:47 Dose: 12 mg Documented by: Aspirin (Aspirin 81 Mg) 81 mg PO DAILY [facility] Last Admin: 07/23/20 07:46 Dose: 81 mg Documented by: Atenolol (Atenolol 25 Mg Tab) 50 mg PO BID [facility] Last Admin: 07/23/20 20:48 Dose: 50 mg Documented by: Benzocaine/Menthol (Benzocaine/Menthol Lozeng 1 Each Lozenge) 1 each MUCOUS MEM Q1HR PRN PRN Reason: Sore Throat Diphenhydramine HCl (Diphenhydramine Elixir 25 Mg/10 Ml Cup) 25 mg PO BID PRN PRN Reason: Itching Last Admin: 07/22/20 15:04 Dose: 25 mg Documented by: Famotidine (Famotidine 20 Mg/2 Ml Vial) 20 mg IV BID [facility] Last Admin: 07/23/20 20:48 Dose: 20 mg Documented by: Heparin Sodium (Porcine) (Heparin Sodium,Porcine 5,000 Unit/Ml 1 Ml Vial) 5,000 unit SQ Q8HR [facility] Last Admin: 07/23/20 17:35 Dose: 5,000 unit Documented by: Hydromorphone HCl (Hydromorphone 1 Mg/Ml 1 Ml Syringe) 1 mg IVP Q3HR PRN PRN Reason: Severe Pain Last Admin: 07/23/20 07:55 Dose: 1 mg Documented by: Lactated Ringer's (Lactated Ringers) 1,000 mls @ 20 mls/hr IV .Q24H [facility] Last Admin: 07/23/20 17:24 Dose: Not Given Documented by: Sodium Chloride (Saline 0.9%) 1,000 mls @ 125 mls/hr IV .Q8H [facility] Last Admin: 07/23/20 13:50 Dose: 125 mls/hr Documented by: Piperacillin Sod/Tazobactam (Sod 3.375 gm/ Sodium Chloride) 100 mls @ 25 mls/hr IVPB Q8HR [facility] Last Admin: 07/23/20 18:14 Dose: 25 mls/hr Documented by: Insulin Aspart (Insulin Aspart (Novolog) 100 Unit/Ml Vial) 0 unit SQ [facility]; Protocol Last Admin: 07/23/20 20:48 Dose: Not Given Documented by: Lidocaine HCl (Lidocaine 1% (10mg/Ml) For Iv Start) 0.1 ml INTRADERMA PER PROTOCOL PRN PRN Reason: IV Start Last Admin: 07/21/20 09:11 Dose: 0.1 ml Documented by: Metoclopramide HCl (Metoclopramide 5 Mg/Ml 2 Ml Vial) 10 mg IVP Q6HR PRN PRN Reason: Nausea and Vomiting Last Admin: 07/21/20 21:35 Dose: 10 mg Documented by: Naloxone HCl (Naloxone 0.4 Mg/Ml 1 Ml Vial) 0.2 mg IV Q2M PRN PRN Reason: Opioid Reversal Semaglutide [Ozempic ] 1 Mg/0.75 Ml Pen. Injctr 1 mg SQ Galvan@0900 [facility] Ondansetron HCl (Ondansetron 4 Mg/2 Ml Vial) 4 mg IVP Q8HR PRN PRN Reason: Nausea And Vomiting Pravastatin Sodium (Pravastatin Sodium 40 Mg Tab) 40 mg PO [facility] Last Admin: 07/23/20 20:47 Dose: 40 mg Documented by: Sertraline HCl (Sertraline 100 Mg Tab) 100 mg PO [facility] Last Admin: 07/23/20 20:47 Dose: 100 mg Documented by: Past medical history to include: Diabetes, hypertension, hyperlipidemia, diverticulitis, anxiety depression Social history: Does not smoke or drink alcohol occasionally. . Physical examination: VITAL SIGNS: 98.6, 94, 18, 139 /65, 96% on room air GENERAL: , Sitting at the edge of the bed, epidural discontinued EYES: Pupils equal. Conjunctiva normal. HEENT: External appearance of nose and ears normal, oral cavity grossly normal. NECK: JVD not raised; masses not palpable. HEART: First and second heart sounds are normal; no edema. LUNGS: Respiratory rate normal; clear to auscultation. ABDOMEN: Soft, nontender, dressing in place, decreased bowel sounds, liver spleen not palpable, no masses palpable. PSYCH: Alert and oriented x3; mood and affect normal. INVESTIGATIONS, reviewed in the clinical context: July 23: WBC 15.9 hemoglobin 13.1 potassium 4.4 creatinine 0.56 July 22: WBC 15.8 hemoglobin 12.5 potassium 4.4 creatinine 0.8 Accu-Cheks to 38, 185 Previous testing: White count 9.4 hemoglobin 15.3 potassium 4.3 Assessment and plan: -Low anterior resection for prior history of diverticulitis, with epidural -no discontinued -Obesity BMI 32.1 -Diabetes mellitus type 2, follow Accu-Cheks patient takes Ozempic -Hyperlipidemia, continue Pravachol -Essential hypertension, continue atenolol -Anxiety depression otherwise specified, continue with Zoloft, -Leukocytosis from surgery. No clinical evidence of infection Care was discussed with the patient. Continue current treatment plan Thank you Dr. Hargrove
[2020-07-24] MEDS: SODIUM CHLORIDE 0.9% 1,000 ML IV SCH ×2 (05:41→12:40)
[2020-07-24 06:24] LABS: Basophils % (A) 0 %; Eosinophils # (A) 0.3 k/uL (0-0.7); Eosinophils % (A) 3 %; HCT 32.5 % (34.0-46.0); HGB 10.9 gm/dL (11.4-16.0); Lymphocytes # (A) 1.3 k/uL (1.0-4.8); Lymphocytes % (A) 13 %; MCH 29.3 pg (25.0-35.0); MCHC 33.6 g/dL (31.0-37.0); MCV 87.2 fL (80.0-100.0); Mean Platelet Volume 6.6; Monocytes # (A) 0.5 k/uL (0-1.0); Monocytes % (A) 4 %; Neutrophils # (A) 8.1 k/uL (1.3-7.7); Neutrophils % (A) 79 %; Platelet Count 187 k/uL (150-450); RBC 3.73 m/uL (3.80-5.40); RDW 13.8 % (11.5-15.5); WBC 10.2 k/uL (3.8-10.6)
[2020-07-24 06:37] LABS: African American GFR (CKD) >90 (>60 ml/min/1.73 sqM); Anion Gap 6 mmol/L; Blood Urea Nitrogen 8 mg/dL (7-17); Calcium 8.8 mg/dL (8.4-10.2); Carbon Dioxide 26 mmol/L (22-30); Chloride 107 mmol/L (98-107); Glucose 145 mg/dL (74-99); Non-African American GFR(CKD) >90 (>60 ml/min/1.73 sqM); Potassium 3.3 mmol/L (3.5-5.1); Sodium 139 mmol/L (137-145)
[2020-07-24] MEDS: FAMOTIDINE 20 MG/2 ML VIAL IV SCH ×2 (07:13→21:19)
[2020-07-24] MEDS: HEPARIN SODIUM,PORCINE 5,000 UNIT/ML 1 ML VIAL SQ SCH ×2 (07:13→16:08)
[2020-07-24] MEDS: ASPIRIN 81 MG PO SCH (07:13)
[2020-07-24] MEDS: atenoloL 25 MG TAB PO SCH ×2 (07:13→21:19)
[2020-07-24] MEDS: ALVIMOPAN 12 MG CAPSULE PO SCH (07:14)
[2020-07-24] MEDS: INSULIN ASPART (NovoLOG) 100 UNIT/ML VIAL SQ SCH ×4 (07:15→21:06)
[2020-07-24] MEDS: HYDROcodone/APAP 15 ML SOLUTION PO PRN ×2 (07:21→16:14)
[2020-07-24 08:18] LABS: Glucose,Whole Blood 137 mg/dL (75-99)
[2020-07-24] MEDS: PIPERACILLIN-TAZOBACTAM 3.375 GM in SODIUM CHLORIDE 0.9% 100 ML IVPB SCH ×2 (08:32→16:08)
[2020-07-24] MEDS ORDERED: POTASSIUM BICARBONATE/CIT AC 20 MEQ TABLET.EFF PO ONE (10:00)
--- NOTE | 2020-07-24 11:14 | P.PN ---
Progress Note - Text Progress Note Date: 07/24/20 Patient feels better today. Her fever has resolved. She's had some flatus. On exam vital signs are stable. Abdomen soft. Status post low anterior section. Patient has had return of her bowel function. She will have her diet advanced.
[2020-07-24 11:34] LABS: Glucose,Whole Blood 147 mg/dL (75-99)
[2020-07-24] MEDS: LACTATED RINGERS 1,000 ML IV SCH (15:52)
[2020-07-24 16:41] LABS: Glucose,Whole Blood 124 mg/dL (75-99)
[2020-07-24 20:33] LABS: Glucose,Whole Blood 117 mg/dL (75-99)
[2020-07-24] MEDS: PRAVASTATIN SODIUM 40 MG TAB PO SCH (21:19)
[2020-07-24] MEDS: SERTRALINE 100 MG TAB PO SCH (21:20)
--- NOTE | 2020-07-24 23:59 | P.PN ---
Progress Note - Text Progress Note Date: 07/24/20 - Chief Complaint Abdominal surgery Consultation: This is a pleasant 54-year-old patient of Dr. an. Chronic stable medical conditions include diabetes type 2, hypertension, hyperlipidemia. anxiety depression. Patient has: Today low anterior resection, partial omentectomy, repair of incisional hernia. Postprocedure sitting up in a chair. Has an epidural in place. Today-advanced to full liquid diet. Did have a bowel movement. Pain control. No nausea vomiting.. Review of systems: Was done for constitutional, cardiovascular, GI, pulmonary. relevant finding as above Active Medications Acetaminophen (Acetaminophen Tab 325 Mg Tab) 650 mg PO Q6HR PRN PRN Reason: Fever and/ or Pain Last Admin: 07/23/20 10:29 Dose: 650 mg Documented by: Hydrocodone Bitart/Acetaminophen (Hydrocodone/Apap 15 Ml Solution) 15 ml PO Q6H PRN PRN Reason: Pain Last Admin: 07/24/20 16:14 Dose: 15 ml Documented by: Aspirin (Aspirin 81 Mg) 81 mg PO DAILY [facility] Last Admin: 07/24/20 07:13 Dose: 81 mg Documented by: Atenolol (Atenolol 25 Mg Tab) 50 mg PO BID [facility] Last Admin: 07/24/20 21:19 Dose: 50 mg Documented by: Benzocaine/Menthol (Benzocaine/Menthol Lozeng 1 Each Lozenge) 1 each MUCOUS MEM Q1HR PRN PRN Reason: Sore Throat Diphenhydramine HCl (Diphenhydramine Elixir 25 Mg/10 Ml Cup) 25 mg PO BID PRN PRN Reason: Itching Last Admin: 07/22/20 15:04 Dose: 25 mg Documented by: Famotidine (Famotidine 20 Mg/2 Ml Vial) 20 mg IV BID [facility] Last Admin: 07/24/20 21:19 Dose: 20 mg Documented by: Heparin Sodium (Porcine) (Heparin Sodium,Porcine 5,000 Unit/Ml 1 Ml Vial) 5,000 unit SQ Q8HR [facility] Last Admin: 07/24/20 16:08 Dose: 5,000 unit Documented by: Hydromorphone HCl (Hydromorphone 1 Mg/Ml 1 Ml Syringe) 1 mg IVP Q3HR PRN PRN Reason: Severe Pain Last Admin: 07/23/20 07:55 Dose: 1 mg Documented by: Lactated Ringer's (Lactated Ringers) 1,000 mls @ 20 mls/hr IV .Q24H [facility] Last Admin: 07/24/20 15:52 Dose: Not Given Documented by: Sodium Chloride (Saline 0.9%) 1,000 mls @ 125 mls/hr IV .Q8H [facility] Last Admin: 07/24/20 12:40 Dose: 125 mls/hr Documented by: Piperacillin Sod/Tazobactam (Sod 3.375 gm/ Sodium Chloride) 100 mls @ 25 mls/hr IVPB Q8HR [facility] Last Admin: 07/24/20 16:08 Dose: 25 mls/hr Documented by: Insulin Aspart (Insulin Aspart (Novolog) 100 Unit/Ml Vial) 0 unit SQ [facility]; Protocol Last Admin: 07/24/20 21:06 Dose: Not Given Documented by: Lidocaine HCl (Lidocaine 1% (10mg/Ml) For Iv Start) 0.1 ml INTRADERMA PER PROTOCOL PRN PRN Reason: IV Start Last Admin: 07/21/20 09:11 Dose: 0.1 ml Documented by: Metoclopramide HCl (Metoclopramide 5 Mg/Ml 2 Ml Vial) 10 mg IVP Q6HR PRN PRN Reason: Nausea and Vomiting Last Admin: 07/21/20 21:35 Dose: 10 mg Documented by: Naloxone HCl (Naloxone 0.4 Mg/Ml 1 Ml Vial) 0.2 mg IV Q2M PRN PRN Reason: Opioid Reversal Semaglutide [Ozempic ] 1 Mg/0.75 Ml Pen. Injctr 1 mg SQ Galvan@0900 [facility] Ondansetron HCl (Ondansetron 4 Mg/2 Ml Vial) 4 mg IVP Q8HR PRN PRN Reason: Nausea And Vomiting Pravastatin Sodium (Pravastatin Sodium 40 Mg Tab) [address] [facility] Last Admin: 07/24/20 21:19 Dose: 40 mg Documented by: Sertraline HCl (Sertraline 100 Mg Tab) [address] [facility] Last Admin: 07/24/20 21:20 Dose: 100 mg Documented by: Past medical history to include: Diabetes, hypertension, hyperlipidemia, diverticulitis, anxiety depression Social history: Does not smoke or drink alcohol occasionally. . Physical examination: VITAL SIGNS: 98, 96, 18, 173 bun 86, 94% on room air GENERAL: , Sitting at the edge of the bed, comfortable EYES: Pupils equal. Conjunctiva normal. HEENT: External appearance of nose and ears normal, oral cavity grossly normal. NECK: JVD not raised; masses not palpable. HEART: First and second heart sounds are normal; no edema. LUNGS: Respiratory rate normal; clear to auscultation. ABDOMEN: Soft, nontender, dressing in place, decreased bowel sounds, liver spleen not palpable, no masses palpable. PSYCH: Alert and oriented x3; mood and affect normal. INVESTIGATIONS, reviewed in the clinical context: July 24: WBC 10.2 hemoglobin 10.9 platelets 187 potassium 3.3 creatinine 0.5 for July 23: WBC 15.9 hemoglobin 13.1 potassium 4.4 creatinine 0.56 July 22: WBC 15.8 hemoglobin 12.5 potassium 4.4 creatinine 0.8 Accu-Cheks to 38, 185 Previous testing: White count 9.4 hemoglobin 15.3 potassium 4.3 Assessment and plan: -Low anterior resection for prior history of diverticulitis, with epidural - discontinued. Patient's had a bowel movement. -Obesity BMI 32.1 -Diabetes mellitus type 2, follow Accu-Cheks patient takes Ozempic -Hyperlipidemia, continue Pravachol -Essential hypertension, continue atenolol -Anxiety depression otherwise specified, continue with Zoloft, -Leukocytosis from surgery. No clinical evidence of infection-improving -Acute postprocedure blood loss anemia, as expected from surgery Care was discussed with the patient. Continue current treatment plan Thank you Dr. Hargrove
[2020-07-25] MEDS: SODIUM CHLORIDE 0.9% 1,000 ML IV SCH (00:19)
[2020-07-25] MEDS: HYDROcodone/APAP 15 ML SOLUTION PO PRN ×2 (00:43→18:22)
[2020-07-25] MEDS: LISINOPRIL-HCTZ 10-12.5 MG 1 EACH TAB PO SCH ×3 (00:44→20:35)
[2020-07-25] MEDS: PIPERACILLIN-TAZOBACTAM 3.375 GM in SODIUM CHLORIDE 0.9% 100 ML IVPB SCH ×4 (00:44→23:52)
[2020-07-25] MEDS: HEPARIN SODIUM,PORCINE 5,000 UNIT/ML 1 ML VIAL SQ SCH ×4 (00:44→23:51)
[2020-07-25] MEDS: ASPIRIN 81 MG PO SCH (07:27)
[2020-07-25] MEDS: atenoloL 25 MG TAB PO SCH ×2 (07:27→20:35)
[2020-07-25] MEDS: FAMOTIDINE 20 MG/2 ML VIAL IV SCH ×2 (07:28→20:35)
[2020-07-25] MEDS: INSULIN ASPART (NovoLOG) 100 UNIT/ML VIAL SQ SCH ×4 (07:29→20:25)
[2020-07-25 07:32] LABS: Glucose,Whole Blood 142 mg/dL (75-99)
[2020-07-25 07:49] VITALS: RESP 16
[2020-07-25] MEDS ORDERED: Semaglutide [Ozempic] 1 MG/0.75 ML Pen.Injctr SQ SCH (09:00)
[2020-07-25 11:54] LABS: Glucose,Whole Blood 163 mg/dL (75-99)
--- NOTE | 2020-07-25 14:21 | P.PN ---
Progress Note - Text Progress Note Date: 07/25/20 Patient is doing better. She's had bowel movements and flatus. On exam vital signs are stable. Abdomen soft. Incisions clean and intact. Status post low anterior resection for diverticulitis. Patient will have her IV hep-locked today. She'll start regular diet. We discussed the discharge home tomorrow.
[2020-07-25] MEDS: LACTATED RINGERS 1,000 ML IV SCH (16:42)
[2020-07-25 16:47] LABS: Glucose,Whole Blood 129 mg/dL (75-99)
[2020-07-25 20:20] LABS: Glucose,Whole Blood 129 mg/dL (75-99)
[2020-07-25] MEDS: SERTRALINE 100 MG TAB PO SCH (20:35)
[2020-07-25] MEDS: PRAVASTATIN SODIUM 40 MG TAB PO SCH (20:35)
[2020-07-25] MEDS ORDERED: LISINOPRIL-HCTZ 10-12.5 MG 1 EACH TAB PO STA (22:06)
--- NOTE | 2020-07-25 22:06 | P.PN ---
Progress Note - Text Progress Note Date: 07/25/20 - Chief Complaint Abdominal surgery Consultation: This is a pleasant 54-year-old patient of Dr. an. Chronic stable medical conditions include diabetes type 2, hypertension, hyperlipidemia. anxiety depression. Patient has: Today low anterior resection, partial omentectomy, repair of incisional hernia. Postprocedure sitting up in a chair. Has an epidural in place. Discontinued. Zestoretic was added for blood pressure. Today-tolerating full liquid diet. Bowel movement present. No abdominal pain. Up and about in the room. No nausea vomiting. Feeling well. Review of systems: Was done for constitutional, cardiovascular, GI, pulmonary. relevant finding as above Active Medications Acetaminophen (Acetaminophen Tab 325 Mg Tab) 650 mg PO Q6HR PRN PRN Reason: Fever and/ or Pain Last Admin: 07/23/20 10:29 Dose: 650 mg Documented by: Hydrocodone Bitart/Acetaminophen (Hydrocodone/Apap 15 Ml Solution) 15 ml PO Q6H PRN PRN Reason: Pain Last Admin: 07/25/20 18:22 Dose: 15 ml Documented by: Aspirin (Aspirin 81 Mg) 81 mg PO DAILY [facility] Last Admin: 07/25/20 07:27 Dose: 81 mg Documented by: Atenolol (Atenolol 25 Mg Tab) 50 mg PO BID [facility] Last Admin: 07/25/20 20:35 Dose: 50 mg Documented by: Benzocaine/Menthol (Benzocaine/Menthol Lozeng 1 Each Lozenge) 1 each MUCOUS MEM Q1HR PRN PRN Reason: Sore Throat Diphenhydramine HCl (Diphenhydramine Elixir 25 Mg/10 Ml Cup) 25 mg PO BID PRN PRN Reason: Itching Last Admin: 07/22/20 15:04 Dose: 25 mg Documented by: Famotidine (Famotidine 20 Mg/2 Ml Vial) 20 mg IV BID [facility] Last Admin: 07/25/20 20:35 Dose: 20 mg Documented by: Lisinopril/HCTZ (Lisinopril-Hctz 10-12.5 Mg 1 Each Tab) 1 each PO BID [facility] Last Admin: 07/25/20 20:35 Dose: 1 each Documented by: Heparin Sodium (Porcine) (Heparin Sodium,Porcine 5,000 Unit/Ml 1 Ml Vial) 5,000 unit SQ Q8HR [facility] Last Admin: 07/25/20 16:45 Dose: 5,000 unit Documented by: Hydromorphone HCl (Hydromorphone 1 Mg/Ml 1 Ml Syringe) 1 mg IVP Q3HR PRN PRN Reason: Severe Pain Last Admin: 07/23/20 07:55 Dose: 1 mg Documented by: Lactated Ringer's (Lactated Ringers) 1,000 mls @ 20 mls/hr IV .Q24H [facility] Last Admin: 07/25/20 16:42 Dose: Not Given Documented by: Piperacillin Sod/Tazobactam (Sod 3.375 gm/ Sodium Chloride) 100 mls @ 25 mls/hr IVPB Q8HR [facility] Last Admin: 07/25/20 16:45 Dose: 25 mls/hr Documented by: Insulin Aspart (Insulin Aspart (Novolog) 100 Unit/Ml Vial) 0 unit SQ [facility]; Protocol Last Admin: 07/25/20 20:25 Dose: Not Given Documented by: Lidocaine HCl (Lidocaine 1% (10mg/Ml) For Iv Start) 0.1 ml INTRADERMA PER PROTOCOL PRN PRN Reason: IV Start Last Admin: 07/21/20 09:11 Dose: 0.1 ml Documented by: Metoclopramide HCl (Metoclopramide 5 Mg/Ml 2 Ml Vial) 10 mg IVP Q6HR PRN PRN Reason: Nausea and Vomiting Last Admin: 07/21/20 21:35 Dose: 10 mg Documented by: Naloxone HCl (Naloxone 0.4 Mg/Ml 1 Ml Vial) 0.2 mg IV Q2M PRN PRN Reason: Opioid Reversal Semaglutide [Ozempic ] 1 Mg/0.75 Ml Pen. Injctr 1 mg SQ Galvan@0900 [facility] Last Admin: 07/25/20 07:34 Dose: Not Given Documented by: Ondansetron HCl (Ondansetron 4 Mg/2 Ml Vial) 4 mg IVP Q8HR PRN PRN Reason: Nausea And Vomiting Pravastatin Sodium (Pravastatin Sodium 40 Mg Tab) 40 mg PO [facility] Last Admin: 07/25/20 20:35 Dose: 40 mg Documented by: Sertraline HCl (Sertraline 100 Mg Tab) 100 mg PO [facility] Last Admin: 07/25/20 20:35 Dose: 100 mg Documented by: Past medical history to include: Diabetes, hypertension, hyperlipidemia, diverticulitis, anxiety depression Social history: Does not smoke or drink alcohol occasionally. . Physical examination: VITAL SIGNS: 98.2, 71, 16, 1 6580, 96% on room air GENERAL: , Sitting at the edge of the bed, comfortable EYES: Pupils equal. Conjunctiva normal. HEENT: External appearance of nose and ears normal, oral cavity grossly normal. NECK: JVD not raised; masses not palpable. HEART: First and second heart sounds are normal; no edema. LUNGS: Respiratory rate normal; clear to auscultation. ABDOMEN: Soft, nontender, dressing in place, decreased bowel sounds, liver spleen not palpable, no masses palpable. PSYCH: Alert and oriented x3; mood and affect normal. INVESTIGATIONS, reviewed in the clinical context: July 24: WBC 10.2 hemoglobin 10.9 platelets 187 potassium 3.3 creatinine 0.5 for July 23: WBC 15.9 hemoglobin 13.1 potassium 4.4 creatinine 0.56 July 22: WBC 15.8 hemoglobin 12.5 potassium 4.4 creatinine 0.8 Accu-Cheks to 38, 185 Previous testing: White count 9.4 hemoglobin 15.3 potassium 4.3 Assessment and plan: -Low anterior resection for prior history of diverticulitis, with epidural - discontinued. Patient's had a bowel movement. -Obesity BMI 32.1 -Diabetes mellitus type 2, follow Accu-Cheks patient takes Ozempic -Hyperlipidemia, continue Pravachol -Essential hypertension, continue atenolol. -Anxiety depression otherwise specified, continue with Zoloft, -Leukocytosis from surgery. No clinical evidence of infection-improving -Acute postprocedure blood loss anemia, as expected from surgery Increased dose of Zestoretic to 20/12.5 twice a day Thank you Dr. Hargrove
[2020-07-26] MEDS: HYDROcodone/APAP 15 ML SOLUTION PO PRN (00:35)
[2020-07-26 07:10] LABS: Glucose,Whole Blood 133 mg/dL (75-99)
[2020-07-26] MEDS: atenoloL 25 MG TAB PO SCH (07:14)
[2020-07-26] MEDS: ASPIRIN 81 MG PO SCH (07:14)
[2020-07-26] MEDS: FAMOTIDINE 20 MG/2 ML VIAL IV SCH (07:14)
[2020-07-26] MEDS: HEPARIN SODIUM,PORCINE 5,000 UNIT/ML 1 ML VIAL SQ SCH (07:15)
[2020-07-26] MEDS: INSULIN ASPART (NovoLOG) 100 UNIT/ML VIAL SQ SCH ×2 (07:15→11:39)
[2020-07-26] MEDS: PIPERACILLIN-TAZOBACTAM 3.375 GM in SODIUM CHLORIDE 0.9% 100 ML IVPB SCH (07:56)
[2020-07-26 08:08] VITALS: BP 167/76; PULSE 65; TEMP 97.6
[2020-07-26 08:57] LABS: Basophils # (A) 0.1 k/uL (0-0.2); Basophils % (A) 1 %; Eosinophils # (A) 0.4 k/uL (0-0.7); Eosinophils % (A) 4 %; HGB 12.2 gm/dL (11.4-16.0); Lymphocytes # (A) 1.8 k/uL (1.0-4.8); Lymphocytes % (A) 18 %; MCH 29.9 pg (25.0-35.0); MCHC 33.8 g/dL (31.0-37.0); MCV 88.3 fL (80.0-100.0); Mean Platelet Volume 6.7; Monocytes # (A) 0.4 k/uL (0-1.0); Monocytes % (A) 4 %; Neutrophils # (A) 7.2 k/uL (1.3-7.7); Neutrophils % (A) 72 %; Platelet Count 263 k/uL (150-450); RBC 4.07 m/uL (3.80-5.40); RDW 14.3 % (11.5-15.5)
[2020-07-26] MEDS ORDERED: LISINOPRIL-HCTZ 20-12.5 MG 1 EACH TAB PO SCH (09:00)
[2020-07-26 09:06] LABS: African American GFR (CKD) >90 (>60 ml/min/1.73 sqM); Anion Gap 10 mmol/L; Blood Urea Nitrogen 9 mg/dL (7-17); Calcium 9.8 mg/dL (8.4-10.2); Carbon Dioxide 28 mmol/L (22-30); Chloride 102 mmol/L (98-107); Glucose 221 mg/dL (74-99); Non-African American GFR(CKD) >90 (>60 ml/min/1.73 sqM); Potassium 3.9 mmol/L (3.5-5.1); Sodium 140 mmol/L (137-145)
[2020-07-26 11:35] LABS: Glucose,Whole Blood 108 mg/dL (75-99)
--- NOTE | 2020-07-26 12:45 | P.DS ---
Providers Date of admission: 07/21/20 08:52 Expected date of discharge: 07/26/20 Attending physician: Anderson Hargrove Consults: 07/21/20 12:50 Consult Physician Routine Consulting Provider: Antonio Elam Consult Reason/Comments: management Do you want consulting provider notified?: Yes Primary care physician: Raffi Smith MD Hospital Course: Discharge diagnosis 1. Diverticulitis and incisional hernia status post lower anterior resection, partial omentectomy and repair of incisional hernia 2. Leukocytosis possibly reactive from surgery. Now resolved. No evidence of infection 3. History of diabetes mellitus type 2 Hospital course This is a 54-year-old female with history of chronic diverticulitis and incisional hernia she is status post lower anterior resection, partial omentectomy and repair of incisional hernia. Patient tolerated surgery well. Her pain is controlled. She is tolerating diet. She is having bowel movements and flatus. She has been up and ambulating. She is urinating without difficulty. She is afebrile. She is stable for discharge. Please refer to chart for any further details. Physician Salad Chef note has been reviewed by physician. Signing provider agrees with the documented findings, assessment, and plan of care. Patient Condition at Discharge: Stable Plan - Discharge Summary Discharge Rx Participant: Yes New Discharge Prescriptions: New INSULIN ASPART (NovoLOG) [NovoLOG (formulary)] 0 unit SQ ACHS vial Lisinopril-Hctz 20-12.5 mg [Zestoretic 20-12.5] 1 each PO BID #60 tab HYDROcodone/APAP [[place] Elixir 7.5-325Mg/15Ml] 15 ml PO Q6H PRN #200 ml PRN Reason: Pain Continue Aspirin 81 mg PO DAILY Sertraline [Zoloft] 100 mg PO HS Pravastatin Sodium [Pravachol] 40 mg PO HS Dextroamphetamine/Amphetamine [Adderall] 30 mg PO BID atenoloL [Atenolol] 50 mg PO BID Semaglutide [Ozempic] 1 mg SQ [place] Discharge Medication List Aspirin 81 mg PO DAILY 06/30/20 [History] Dextroamphetamine/Amphetamine [Adderall] 30 mg PO BID 06/30/20 [History] Pravastatin Sodium [Pravachol] 40 mg PO HS 06/30/20 [History] Semaglutide [Ozempic] 1 mg SQ [place] 06/30/20 [History] Sertraline [Zoloft] 100 mg PO HS 06/30/20 [History] atenoloL [Atenolol] 50 mg PO BID 06/30/20 [History] HYDROcodone/APAP [[place] Elixir 7.5-325Mg/15Ml] 15 ml PO Q6H PRN #200 ml 07/26/20 [Rx] INSULIN ASPART (NovoLOG) [NovoLOG (formulary)] 0 unit SQ ACHS vial 07/26/20 [Rx] Lisinopril-Hctz 20-12.5 mg [Zestoretic 20-12.5] 1 each PO BID #60 tab 07/26/20 [Rx] Follow up Appointment(s)/Referral(s): Raffi Smith MD [Primary Care Provider] - 1 Week Anderson Hargrove MD [STAFF PHYSICIAN] - 1 Week Activity/Diet/Wound Care/Special Instructions: Glucometer at [facility] (please have them deliver to patient before discharge): $42.39 [address] while taking [place] No lifting over 10 pounds You may shower. No soaking or tub baths for 2 weeks Very light activity until you are reevaluated at your follow up appointment with your surgeon Discharge Disposition: HOME SELF-CARE
--- NOTE | 2020-07-27 23:51 | P.DS ---
Providers Date of admission: 07/21/20 08:52 Expected date of discharge: 07/26/20 Attending physician: Anderson Hargrove Consults: 07/21/20 12:50 Consult Physician Routine Consulting Provider: Antonio Elam Consult Reason/Comments: management Do you want consulting provider notified?: Yes Primary care physician: Raffi Smith MD Hospital Course: - Chief Complaint Abdominal surgery Consultation: This is a pleasant 54-year-old patient of Dr. smith. Chronic stable medical conditions include diabetes type 2, hypertension, hyperlipidemia. anxiety depression. Today low anterior resection, partial omentectomy, repair of incisional hernia. Postprocedure sitting up in a chair. Has an epidural in place. Discontinued. Zestoretic was added for blood pressure. Today-doing well. Up and about. Tolerated diet. Feeling well. Review of systems: Was done for constitutional, cardiovascular, GI, pulmonary. relevant finding as above Past medical history to include: Diabetes, hypertension, hyperlipidemia, diverticulitis, anxiety depression Social history: Does not smoke or drink alcohol occasionally. . Physical examination: VITAL SIGNS: 97.6, 65, 16, 1 67 x 76, 98% room air GENERAL: , Sitting at the edge of the bed, comfortable EYES: Pupils equal. Conjunctiva normal. HEENT: External appearance of nose and ears normal, oral cavity grossly normal. NECK: JVD not raised; masses not palpable. HEART: First and second heart sounds are normal; no edema. LUNGS: Respiratory rate normal; clear to auscultation. ABDOMEN: Soft, nontender, dressing in place, bowel sounds present, liver spleen not palpable, no masses palpable. PSYCH: Alert and oriented x3; mood and affect normal. INVESTIGATIONS, reviewed in the clinical context: July 24: WBC 10.2 hemoglobin 10.9 platelets 187 potassium 3.3 creatinine 0.5 for July 23: WBC 15.9 hemoglobin 13.1 potassium 4.4 creatinine 0.56 July 22: WBC 15.8 hemoglobin 12.5 potassium 4.4 creatinine 0.8 Accu-Cheks to 38, 185 Previous testing: White count 9.4 hemoglobin 15.3 potassium 4.3 Assessment and plan: -Low anterior resection for prior history of diverticulitis, with epidural - discontinued. Patient's had a bowel movement. -Obesity BMI 32.1 -Diabetes mellitus type 2, follow Accu-Cheks patient takes Ozempic -Hyperlipidemia, continue Pravachol -Essential hypertension, continue atenolol. -Anxiety depression otherwise specified, continue with Zoloft, -Leukocytosis from surgery. No clinical evidence of infection-improving -Acute postprocedure blood loss anemia, as expected from surgery Increased dose of Zestoretic to 20/12.5 twice a day. Care was discussed with the patient. Follow-up with PCP. Thank you Dr. Hargrove Plan - Discharge Summary Discharge Rx Participant: Yes New Discharge Prescriptions: New INSULIN ASPART (NovoLOG) [NovoLOG (formulary)] 0 unit SQ ACHS vial Lisinopril-Hctz 20-12.5 mg [Zestoretic 20-12.5] 1 each PO BID #60 tab HYDROcodone/APAP [[place] Elixir 7.5-325Mg/15Ml] 15 ml PO Q6H PRN #200 ml PRN Reason: Pain Continue Aspirin 81 mg PO DAILY Sertraline [Zoloft] 100 mg PO HS Pravastatin Sodium [Pravachol] 40 mg PO HS Dextroamphetamine/Amphetamine [Adderall] 30 mg PO BID atenoloL [Atenolol] 50 mg PO BID Semaglutide [Ozempic] 1 mg SQ [place] Discharge Medication List Aspirin 81 mg PO DAILY 06/30/20 [History] Dextroamphetamine/Amphetamine [Adderall] 30 mg PO BID 06/30/20 [History] Pravastatin Sodium [Pravachol] 40 mg PO HS 06/30/20 [History] Semaglutide [Ozempic] 1 mg SQ [place] 06/30/20 [History] Sertraline [Zoloft] 100 mg PO HS 06/30/20 [History] atenoloL [Atenolol] 50 mg PO BID 06/30/20 [History] HYDROcodone/APAP [[place] Elixir 7.5-325Mg/15Ml] 15 ml PO Q6H PRN #200 ml 07/26/20 [Rx] INSULIN ASPART (NovoLOG) [NovoLOG (formulary)] 0 unit SQ ACHS vial 07/26/20 [Rx] Lisinopril-Hctz 20-12.5 mg [Zestoretic 20-12.5] 1 each PO BID #60 tab 07/26/20 [Rx] Follow up Appointment(s)/Referral(s): Raffi Smith MD [Primary Care Provider] - 1 Week (office not answering Pl ease call to schedule an appointment ) Anderson Hargrove MD [STAFF PHYSICIAN] - 08/05/20 2:00 pm Patient Instructions/Handouts: Diverticulitis (DC) Activity/Diet/Wound Care/Special Instructions: No driving while taking [place] No lifting over 10 pounds You may shower. No soaking or tub baths for 2 weeks Very light activity until you are reevaluated at your follow up appointment with your surgeon Discharge Disposition: HOME SELF-CARE
== END 2020-07-26 14:11 | disposition home or self-care (01) | DRG 331 ==
LOC: 2ORMAIN 08:52 → 4SSUR 19:56
PROVIDERS: ADMIT Surgery; ATTEND Surgery
PROC: 0DBN0ZZ Excision of Sigmoid Colon, Open Approach (ICD-10-PCS; principal; 2020-07-21 10:20)
PROC: 0WQF0ZZ Repair Abdominal Wall, Open Approach (ICD-10-PCS; principal; 2020-07-21 10:20)
PROC: 0DBU0ZZ Excision of Omentum, Open Approach (ICD-10-PCS; principal; 2020-07-21 10:20)
DX: K57.92 Diverticulitis of intestine, part unspecified, without perforation or abscess without bleeding (principal); K43.2 Incisional hernia without obstruction or gangrene; Z68.32 Body mass index [BMI] 32.0-32.9, adult; D72.829 Elevated white blood cell count, unspecified; E11.9 Type 2 diabetes mellitus without complications; E66.9 Obesity, unspecified; E78.5 Hyperlipidemia, unspecified; F41.8 Other specified anxiety disorders; F90.9 Attention-deficit hyperactivity disorder, unspecified type; I10 Essential (primary) hypertension; L29.9 Pruritus, unspecified; Z79.82 Long term (current) use of aspirin; Z79.899 Other long term (current) drug therapy
CPT/HCPCS: 36415; 80048; 80051; 80053; 85025; 85027; 86850; 86900; 86901; 88307; 93005; 94760

== ENCOUNTER → 2020-11-16 | Outpatient (CLI) | payer BC ==
--- NOTE | 2020-11-18 11:50 | MM ---
Reason for exam: screening (asymptomatic). Last mammogram was performed 1 year and 1 month ago. History: Patient is postmenopausal. Took progesterone for 1 year 6 months beginning at age 36. Physical Findings: A clinical breast exam by your physician is recommended on an annual basis and results should be correlated with mammographic findings. MG Screening Mammo w CAD Bilateral CC and MLO view(s) were taken. Prior study comparison: October 31, 2019, bilateral MG screening mammo w CAD. July 19, 2018, bilateral MG screening mammo w CAD. The breast tissue is heterogeneously dense. This may lower the sensitivity of mammography. Focal asymmetry upper outer left breast zone B. This finding is changed when compared with previous exams. ASSESSMENT: Incomplete: need additional imaging evaluation, BI-RAD 0 RECOMMENDATION: Special view mammogram of the left breast. If lesion persists on supplemental views, image directed ultrasound is recommended. [facility] will attempt to contact patient to return for supplemental views and ultrasound if indicated.
== END | disposition home or self-care (01) ==
LOC: RADMAMWWP 07:04
PROVIDERS: ATTEND Obstetrics & Gynecology
DX: Z12.31 Encounter for screening mammogram for malignant neoplasm of breast (principal); Z78.0 Asymptomatic menopausal state; Z79.3 Long term (current) use of hormonal contraceptives
CPT/HCPCS: 77067

== ENCOUNTER → 2020-11-22 | Outpatient (CLI) | payer BC ==
--- NOTE | 2020-12-01 09:46 | MM ---
Reason for exam: additional evaluation requested from abnormal screening. Last mammogram was performed less than 1 month ago. History: Patient is postmenopausal. Physical Findings: Nurse did not find any significant physical abnormalities on exam. MG Work Up Mamm w CAD LT Spot compression CC, spot compression MLO, and ML view(s) were taken of the left breast. Prior study comparison: November 16, 2020, bilateral MG screening mammo w CAD. October 31, 2019, bilateral MG screening mammo w CAD. There are scattered fibroglandular densities. Previously seen asymmetries are no longer seen and presumable represented overlapping fibroglandular tissue. These results were verbally communicated with the patient and result sheet given to the patient on 11/22/20. ASSESSMENT: Benign, BI-RAD 2 RECOMMENDATION: Return to routine screening mammogram schedule for both breasts.
== END | disposition home or self-care (01) ==
LOC: RADMAMWWP 09:01
PROVIDERS: ATTEND Obstetrics & Gynecology
DX: N64.89 Other specified disorders of breast (principal)
CPT/HCPCS: 77065

== ENCOUNTER → 2021-01-19 | Outpatient (CLI) | payer BC ==
[2021-01-19 13:17] LABS: Basophils # (A) 0.1 k/uL (0-0.2); Basophils % (A) 1 %; Eosinophils # (A) 0.2 k/uL (0-0.7); Eosinophils % (A) 2 %; HGB 14.9 gm/dL (11.4-16.0); Lymphocytes # (A) 2.8 k/uL (1.0-4.8); Lymphocytes % (A) 30 %; MCH 30.2 pg (25.0-35.0); MCHC 33.8 g/dL (31.0-37.0); MCV 89.3 fL (80.0-100.0); Mean Platelet Volume 6.8; Monocytes # (A) 0.4 k/uL (0-1.0); Monocytes % (A) 4 %; Neutrophils # (A) 6.1 k/uL (1.3-7.7); Neutrophils % (A) 63 %; Platelet Count 236 k/uL (150-450); RBC 4.92 m/uL (3.80-5.40); RDW 13.1 % (11.5-15.5); WBC 9.6 k/uL (3.8-10.6)
== END | disposition home or self-care (01) ==
LOC: LABPAT 11:54
PROVIDERS: ATTEND Surgery
DX: Z01.812 Encounter for preprocedural laboratory examination (principal); K43.2 Incisional hernia without obstruction or gangrene; F17.200 Nicotine dependence, unspecified, uncomplicated; D64.9 Anemia, unspecified
CPT/HCPCS: 36415; 85025

== ENCOUNTER 2021-01-26 06:52 | Day surgery (SDC) | payer BC ==
[2021-01-20 12:55] VITALS: BMI 30.9
[~2021-01-26 06:52] MED LIST changes: -DEXAMETHASONE SOD PHOSPHATE 4 MG/ML 1 ML VIAL IV PRN; -HEPARIN SODIUM,PORCINE 5,000 UNIT/ML 1 ML VIAL SQ PRN; +HEPARIN SODIUM,PORCINE/PF 5,000 UNIT/0.5 ML SYRINGE SQ PRN; -HYDROmorphone 0.5 MG/0.5 ML SYRINGE IVP PRN; -LIDOCAINE 1% (10MG/ML) FOR IV START INTRADERMA PRN; -MIDAZOLAM 2 MG/2 ML VIAL IV PRN; -ONDANSETRON 4 MG/2 ML VIAL IVP PRN; -fentaNYL (PF) 50 MCG/ML 2 ML AMP IVP PRN; -metroNIDAZOLE-NS PMX 500 MG in SALINE 1 100ML.BAG IVPB PRN
[2021-01-26] MEDS ORDERED: SCOPOLAMINE 1.5MG/72HR PATCH TRANSDERM ONE (07:32)
[2021-01-26] MEDS ORDERED: DEXAMETHASONE SOD PHOSPHATE 4 MG/ML 1 ML VIAL IV ONE (07:32)
[2021-01-26] MEDS ORDERED: ONDANSETRON 4 MG/2 ML VIAL IVP ONE (07:32)
[2021-01-26] MEDS ORDERED: HYDROmorphone 0.5 MG/0.5 ML SYRINGE IVP PRN (07:32)
[2021-01-26] MEDS ORDERED: LIDOCAINE 1% (10MG/ML) FOR IV START INTRADERMA PRN (07:32)
[2021-01-26 07:40] LABS: Glucose,Whole Blood 163 mg/dL (75-99)
[2021-01-26] MEDS: LACTATED RINGERS 1,000 ML IV SCH ×2 (07:44→12:58)
[2021-01-26] MEDS ORDERED: MIDAZOLAM 2 MG/2 ML VIAL IVP ONE (08:09)
[2021-01-26] MEDS ORDERED: BUPIVACAINE (PF) 0.5% 30 ML VIAL SQ ONE ×2 (08:27→08:54)
[2021-01-26] MEDS ORDERED: NEOSTIGMINE 1 MG/ML 10 ML VIAL ONE (08:28)
[2021-01-26] MEDS ORDERED: KETOROLAC 15 MG/ML 1 ML VIAL ONE (08:28)
[2021-01-26] MEDS ORDERED: ROCURONIUM 10 MG/ML (5 ML VIAL) IV ONE (08:28)
[2021-01-26] MEDS ORDERED: PROPOFOL 10 MG/ML 20 ML VIAL IV ONE (08:28)
[2021-01-26] MEDS ORDERED: LIDOCAINE 1% INJ 10MG/ML (20 ML MDV) ONE (08:28)
[2021-01-26] MEDS ORDERED: KETAMINE 10 MG/ML 20 ML VIAL ONE (08:28)
[2021-01-26] MEDS ORDERED: fentaNYL (PF) 50 MCG/ML 2 ML AMP ONE (08:28)
[2021-01-26] MEDS ORDERED: MIDAZOLAM 2 MG/2 ML VIAL ONE (08:28)
[2021-01-26] MEDS ORDERED: GLYCOPYRROLATE 0.2 MG/ML 2 ML VIAL ONE (08:28)
[2021-01-26] MEDS ORDERED: SUCCINYLCHOLINE CHLORIDE 100 MG/5 ML SYR IV ONE (08:28)
[2021-01-26] MEDS ORDERED: LIDOCAINE 1%-EPI 1:100,000 20 ML VIAL SQ ONE (09:50)
--- NOTE | 2021-01-26 10:14 | P.GSHP ---
History of Present Illness H&P Date: 01/26/21 Chief Complaint: Incisional hernia This is a 55-year-old female developed incisional hernia. Patient appears history of low anterior resection. Past Medical History Past Medical History: Diabetes Mellitus, Hyperlipidemia, Hypertension Additional Past Medical History / Comment(s): DIVERTICULITIS. TYPE 2 DIABETIC History of Any Multi-Drug Resistant Organisms: None Reported Past Surgical History: Bowel Resection, Section, Orthopedic Surgery, Uterine Ablation Additional Past Surgical History / Comment(s): ovarian cyst removal C SECTION X2, RIGHT CARPAL TUNNEL RELEASE, LEFT CARPAL TUNNEL RELEASE, LEFT ELBOW SURGERY Past Anesthesia/Blood Transfusion Reactions: No Reported Reaction Smoking Status: Never smoker - Past Family History Brother(s) Family Medical History: Cancer Medications and Allergies Home Medications Medication Instructions Recorded Confirmed Type Aspirin 81 mg PO DAILY 06/30/20 01/20/21 History Dextroamphetamine/Amphetamine 30 mg PO BID 06/30/20 01/20/21 History [Adderall] Pravastatin Sodium [Pravachol] 40 mg PO HS 06/30/20 01/20/21 History Semaglutide [Ozempic] 1 mg SQ [place] 06/30/20 01/20/21 History Sertraline [Zoloft] 100 mg PO HS 06/30/20 01/20/21 History atenoloL 50 mg PO QAM 06/30/20 01/20/21 History Cider Vinegar [Apple Cider Vinegar] 300 mg PO DAILY 01/20/21 01/20/21 History Lisinopril-Hctz 20-12.5 mg 1 each PO HS 01/20/21 01/20/21 History [Zestoretic 20-12.5] Allergies Allergy/AdvReac Type Severity Reaction Status Date / Time No Known Allergies Allergy Verified 01/26/21 07:25 Surgical - Exam Vital Signs Temp Pulse Resp BP Pulse Ox 96.9 F L 80 15 151/77 96 01/26/21 07:28 01/26/21 07:28 01/26/21 07:28 01/26/21 07:28 01/26/21 07:28 - General well developed, well nourished, no distress - Eyes PERRL - ENT normal pinna - Neck no masses - Respiratory normal expansion - Cardiovascular Rhythm: regular - Abdomen Abdomen: soft, non tender Hernia: incisional (Large incisional hernia located along midline scar) Results - Labs Abnormal Lab Results - Last 24 Hours (Table) 01/26/21 Range/Units 07:36 POC Glucose (mg/dL) 163 H (75-99) mg/dL Assessment and Plan Assessment: Incisional hernia. We will perform laparoscopic robotic-assisted repair of incisional hernia
--- NOTE | 2021-01-26 10:18 | P.OP ---
Date of Procedure: 01/26/21 Preoperative Diagnosis: Incisional hernia Postoperative Diagnosis: Incisional hernia Procedure(s) Performed: Tap block Laparoscopic robotic-assisted repair of incisional hernia Anesthesia: ISIDRA Surgeon: Anderson Hargrove Estimated Blood Loss (ml): 20 Pathology: none sent Condition: stable Disposition: PACU Description of Procedure: The patient was placed on the operating table in the supine position. He received general anesthesia. His abdomen was prepped and draped usual fashion. Using a 5 mm optical trocar under direct visualization the peritoneal cavity was entered in the left upper quadrant. The abdomen was then insufflated. The laparoscope was placed back into the perineal cavity. Next a 8 mm robotic trocar was placed in the left lower quadrant and a 12 mm robotic trocar was placed in the left lateral position. The original 5 mm trocar was exchanged for a 8 mm robotic trocar. The patient's placed in the left side up position. Using a laparoscope the tap block was performed. 50 mL of 0.5 % local Xylocaine with epinephrine was placed in the pre-peritoneal space in 4 quadrants under direct vision. And the patient was docked to the robot. The incisional hernia was visualized. Using hook cautery the peritoneum over the incisional hernia was excised. The fascial opening was repaired using 0V LOC suture. Next a piece of 11 cm round ventral light ST mesh was placed into the. Cavity and secured with 2 OV lock suture. The patient was undocked the robot. The needles were retrieved. The fascia of the 12 mm trocar site was closed with 0 Ethibond suture. Skin was closed interrupted 3-0 Monocryl suture. Dermabond dressings was applied. Patient tolerated procedure well and was sent to recovery room stable condition.
[2021-01-26 10:21] VITALS: RESP 16; TEMP 97
[2021-01-26] MEDS ORDERED: ACETAMINOPHEN IV (For NPO) 1,000 MG/100 ML VIAL IVPB ONE (11:45)
[2021-01-26 13:40] VITALS: PULSE 86
[2021-01-26 14:35] VITALS: BP 119/72
== END 2021-01-26 15:01 | disposition home or self-care (01) ==
LOC: OR 06:52
PROVIDERS: ATTEND Surgery
DX: K43.2 Incisional hernia without obstruction or gangrene (principal); E11.9 Type 2 diabetes mellitus without complications; E78.5 Hyperlipidemia, unspecified; I10 Essential (primary) hypertension; F32.9 Major depressive disorder, single episode, unspecified; Z79.82 Long term (current) use of aspirin; Z79.899 Other long term (current) drug therapy
CPT/HCPCS: 49654; C1781; J2250; J1100; J2710; J0690; J2405; J2001; J3010; J0131; J1885; J0330; J2704

== ENCOUNTER → 2021-07-12 | Outpatient (CLI) | payer BC ==
[~2021-07-12] MED LIST changes: -ACETAMINOPHEN TAB 500 MG TAB PO PRN; -HEPARIN SODIUM,PORCINE/PF 5,000 UNIT/0.5 ML SYRINGE SQ PRN; +REGADENOSON 0.4 MG/5 ML SYRINGE IV ONE
--- NOTE | 2021-07-12 10:55 | P.STRESS ---
- Stress Test Note Stress Test Results/Findings: Exam Performed: NM stress lexiscan cardiolite Exam Date: 07/12/21 Reason for Exam: ABN ECG Height: 5 ft 4 in Weight: 81.647 kg Protocol: LEXISCAN CARDIOLITE Stage: NA Duration of Exercise: NA Resting Heart Rate: 79 Resting Blood Pressure: 120/68 Maximum Achieved Heart Rate: 103 Maximum Achieved Blood Pressure: 147/71 85% PMHR: 139 100% PMHR: 163 METS: NA Technologist Comment: Stress Test Results/Findings: This is a 55-year-old female with history of hypertension, diabetes and hypercholesterolemia being evaluated for symptoms of palpitations and abnormal EKG. Patient also has family history of ischemic heart disease. Stress data: Baseline EKG showed sinus rhythm, normal UT interval and QRS duration. Blood pressure at rest is 120/68, pulse rate of 79. History and dose of Lexiscan was infused EKGs taken during and after infusion did not reveal any significant changes from the baseline. Patient complained of slight tightness which resolved within a short period. Final impression: #1. Negative Lexiscan stress test #2. Report on the nuclear images to be provided by the radiologist.
--- NOTE | 2021-07-12 11:23 | NM ---
EXAMINATION TYPE: NM stress lexiscan cardiolite DATE OF EXAM: 07/12/2021 COMPARISON: NONE HISTORY: Abnormal EKG. History of hypercholesteremia, hypertension, and diabetes. TECHNIQUE: After the intravenous administration of 9.4 mCi Tc 99m Sestamibi - Cardiolite resting SPE CT images acquired 75 minutes post injection. The patient received 0.4mg Lexiscan, 24.2 mCi Tc 99m Sestamibi - Stress images obtained [address] injection FINDINGS: Review of stress and rest SPECT images demonstrates no distinct perfusion abnormality. Gated analysi s shows normal wall motion with an estimated left ventricular ejection fraction of 61 %. IMPRESSION: No scintigraphic evidence for reversible ischemia.
--- NOTE | 2021-07-14 12:11 | EST ---
Stress Test Results/Findings: Exam Performed: NM stress lexiscan cardiolite Exam Date: 07/12/21 Reason for Exam: ABN ECG Height: 5 ft 4 in Weight: 81.647 kg Protocol: LEXISCAN CARDIOLITE Stage: NA Duration of Exercise: NA Resting Heart Rate: 79 Resting Blood Pressure: 120/68 Maximum Achieved Heart Rate: 103 Maximum Achieved Blood Pressure: 147/71 85% PMHR: 139 100% PMHR: 163 METS: NA Technologist Comment: Stress Test Results/Findings: This is a 55-year-old female with history of hypertension, diabetes and hypercholesterolemia being evaluated for symptoms of palpitations and abnormal EKG. Patient also has family history of ischemic heart disease. Stress data: Baseline EKG showed sinus rhythm, normal NE interval and QRS duration. Blood pressure at rest is 120/68, pulse rate of 79. History and dose of Lexiscan was infused EKGs taken during and after infusion did not reveal any significant changes from the baseline. Patient complained of slight tightness which resolved within a short period. Final impression: #1. Negative Lexiscan stress test #2. Report on the nuclear images to be provided by the radiologist. AMIRA
== END | disposition home or self-care (01) ==
LOC: RADNMMAIN 07:53
PROVIDERS: ATTEND Family Medicine
DX: R94.31 Abnormal electrocardiogram [ECG] [EKG] (principal)
CPT/HCPCS: 93017; 78452; A9500; J2785

== ENCOUNTER → 2022-02-23 | Outpatient (CLI) | payer BC ==
--- NOTE | 2022-02-24 15:45 | MM ---
Reason for Exam: Screening (asymptomatic). Last mammogram was performed 1 year(s) and 3 month(s) ago. Patient History: Menarche at age 10. First Full-Term at age 19. Right ovary removed at age 44. Postmenopausal. Patient has history of breast feeding. Risk Values: Marie 5 year model risk: 1.2%. NCI Lifetime model risk: 6.9%. Prior Study Comparison: 10/31/2019 Bilateral Screening Mammogram, [facility]. 11/16/2020 Bilateral Screening Mammogram, [facility]. 11/22/2020 Left Diagnostic Mammogram, [facility]. Tissue Density: The breast tissue is almost entirely fat. Findings: Analyzed By CAD. There is a benign-appearing round calcification in the anterior left breast. Nodularity is in the outer right mid breast. No suspicious groups of microcalcifications, spiculated or lobular masses, architectural distortion or other secondary signs of malignancy are mammographically apparent. Overall Assessment: Benign, BI-RAD 2 Management: Screening Mammogram of both breasts in 1 year. A negative mammogram report should not preclude additional follow up of suspicious palpable abnormalities. Patient should continue monthly self breast exam. A clinical breast exam by your physician is recommended on an annual basis and results should be correlated with mammographic findings. Electronically signed and approved by: Sage Ewing D.O. Radiologis
== END | disposition home or self-care (01) ==
LOC: RADMAMWWP 07:17
PROVIDERS: ATTEND Obstetrics & Gynecology
DX: Z12.31 Encounter for screening mammogram for malignant neoplasm of breast (principal); Z78.0 Asymptomatic menopausal state
CPT/HCPCS: 77067

== ENCOUNTER → 2023-03-06 | Outpatient (CLI) | payer BC ==
--- NOTE | 2023-03-07 09:06 | MM ---
Reason for Exam: Screening (asymptomatic). Last screening mammogram was performed 12 month(s) ago. Patient History: Menarche at age 10. First Full-Term at age 19. Right ovary removed at age 44. Postmenopausal. Patient has history of breast feeding. Risk Values: Marie 5 year model risk: 1.2%. NCI Lifetime model risk: 6.7%. Prior Study Comparison: 11/16/2020 Bilateral Screening Mammogram, [facility]. 11/22/2020 Left Diagnostic Mammogram, [facility]. 02/23/2022 Bilateral MG screening mammo w CAD, [facility]. Tissue Density: There are scattered fibroglandular densities. Findings: Analyzed By CAD. There is no suspicious group of microcalcifications or new suspicious mass in either breast. Overall Assessment: Negative, BI-RAD 1 Management: Screening Mammogram of both breasts in 1 year. . Patient should continue monthly self-breast exams. A clinical breast exam by your physician is recommended on an annual basis. This exam should not preclude additional follow-up of suspicious palpable abnormalities. Note on Marie scores and lifetime risk: 1. A Marie score greater than 3% is considered moderate risk. If this is the case, consider specialist referral to assess eligibility for a risk reducing agent. 2. If overall lifetime risk for the development of breast cancer is 20% or higher, the patient may qualify for future screening with alternating mammogram and breast MRI. Electronically signed and approved by: Ronaldo Okeefe M.D. Radiologis
== END | disposition home or self-care (01) ==
LOC: RADMAMWWP 14:58
PROVIDERS: ATTEND Obstetrics & Gynecology
DX: Z12.31 Encounter for screening mammogram for malignant neoplasm of breast (principal); Z78.0 Asymptomatic menopausal state
CPT/HCPCS: 77063; 77067

== ENCOUNTER → 2024-03-14 | Outpatient (CLI) | payer BC ==
--- NOTE | 2024-03-14 18:09 | BD ---
EXAMINATION TYPE: Axial Bone Density DATE OF EXAM: 03/14/2024 CLINICAL HISTORY: 58 years old Female. ICD-10 CODE: Z78.0 Post menopausal , Z78.0 Height: 63.25 Weight: 176 FRAX RISK QUESTIONS: Family History (Parent hip fracture): no History of Fracture in Adulthood: no Secondary Osteoporosis: no RISK FACTORS HISTORY OF: Surgery to Spine/Hip(right/left)/Wrist (right/left): no MEDICATIONS: Thyroid Medications: no Osteoporosis Medications: no EXAM MEASUREMENTS: Bone mineral densitometry was performed using the LED Light Sense System. Bone mineral density as measured about the Lumbar spine is: ----- L1-L4(G/cm2): 1.338 T Score Values are as follows: ----- L1: 0.2 ----- L2: 0.0 ----- L3: 2.1 ----- L4: 2.6 ----- L1-L4: 1.3 Z Score Values are as follows: ----- L1: 0.9 ----- L2: 0.7 ----- L3: 2.8 ----- L4: 3.4 ----- L1-L4: 2.0 Bone mineral density baseline Bone mineral density about the R hip (g/cm2): 1.101 Bone mineral density about the L hip (g/cm2): 1.094 T Score values are as follows: -----R Neck: -0.2 -----L Neck: -0.5 -----R Total: 0.7 -----L Total: 0.7 Z Score values are as follows: -----R Neck: 0.7 -----L Neck: 0.4 -----R Total: 1.3 -----L Total: 1.3 Bone mineral density baseline FRAX%s: The graph provided illustrates a 6.4% chance for a major osteoporotic fx and a 0.2% chance fo r the hips probability for fx in 10 years time. IMPRESSION: Normal (Values between +1 and -1 indicate normal bone mass). Consider repeating this study in 5 year s or sooner if there is some new clinical indication. NOTE: T-SCORE=SD OF THE YOUNG ADULT MEAN. [facility]: [id number], 03/14/2024 6:07 PM
--- NOTE | 2024-03-17 08:05 | MM ---
Reason for Exam: Screening (asymptomatic). Last mammogram was performed 1 year(s) and 1 month(s) ago. Patient History: Menarche at age 10. First Full-Term at age 19. Right ovary removed at age 44. Postmenopausal. Patient has history of breast feeding. Risk Values: Marie 5 year model risk: 1.3%. NCI Lifetime model risk: 6.6%. Prior Study Comparison: 11/22/2020 Left Diagnostic Mammogram, [facility]. 02/23/2022 Bilateral MG screening mammo w CAD, [facility]. 03/06/2023 Bilateral MG 3D screening mammo w/cad, [facility]. Tissue Density: There are scattered areas of fibroglandular density. Findings: Analyzed By CAD. A nodular density retroareolar bilateral breast. Recommend spot compression CC view and rolled medial CC view right breast. Recommend spot compression view left MLO view and true lateral view.. No suspicious grouped calcifications. Overall Assessment: Incomplete: need additional imaging evaluation, BI-RAD 0 Management: Diagnostic Mammogram of both breasts. . Patient should continue monthly self-breast exams. A clinical breast exam by your physician is recommended on an annual basis. This exam should not preclude additional follow-up of suspicious palpable abnormalities. Note on Marie scores and lifetime risk: 1. A Marie score greater than 3% is considered moderate risk. If this is the case, consider specialist referral to assess eligibility for a risk reducing agent. 2. If overall lifetime risk for the development of breast cancer is 20% or higher, the patient may qualify for future screening with alternating mammogram and breast MRI. [facility], , 03/17/2024 8:02 AM. Electronically signed and approved by: Hakeem Dial M.D. Radiologis
== END | disposition home or self-care (01) ==
LOC: RADMAMWWP 14:04
PROVIDERS: ATTEND Obstetrics & Gynecology
DX: Z12.31 Encounter for screening mammogram for malignant neoplasm of breast (principal); R92.323 Mammographic fibroglandular density, bilateral breasts; Z78.0 Asymptomatic menopausal state; Z90.722 Acquired absence of ovaries, bilateral
CPT/HCPCS: 77067; 77080

== ENCOUNTER → 2024-03-17 | Outpatient (CLI) | payer BC ==
--- NOTE | 2024-03-17 14:41 | MM ---
Reason for Exam: Additional evaluation requested from abnormal screening. Last screening mammogram was performed less than 1 month ago. Patient History: Menarche at age 10. First Full-Term at age 19. Right ovary removed at age 44. Postmenopausal. Patient has history of breast feeding. Risk Values: Marie 5 year model risk: 1.3%. NCI Lifetime model risk: 6.6%. Prior Study Comparison: 03/06/2023 Bilateral MG 3D screening mammo w/cad, [facility]. 03/14/2024 Bilateral MG screening mammo w CAD, [facility]. Tissue Density: There are scattered areas of fibroglandular density. Findings: Analyzed By CAD. The pattern is symmetrical. Under compression no persistent suspicious density is evident. Medial lateral views appear unremarkable. No suspicious groups of microcalcifications, spiculated or lobular masses, architectural distortion or other secondary signs of malignancy are mammographically apparent. Overall Assessment: Probably benign, BI-RAD 3 Management: Diagnostic Mammogram of both breasts in 6 months. A negative mammogram report should not preclude additional follow up of suspicious palpable abnormalities. Patient should continue monthly self breast exam. A clinical breast exam by your physician is recommended on an annual basis and results should be correlated with mammographic findings. Note on Marie scores and lifetime risk: 1. A Marie score greater than 3% is considered moderate risk. If this is the case, consider specialist referral to assess eligibility for a risk reducing agent. 2. If overall lifetime risk for the development of breast cancer is 20% or higher, the patient may qualify for future screening with alternating mammogram and breast MRI. [facility], , 03/17/2024 2:20 PM. Electronically signed and approved by: Sage Ewing D.O. Radiologis
== END | disposition home or self-care (01) ==
LOC: RADMAMWWP 13:56
PROVIDERS: ATTEND Obstetrics & Gynecology
DX: R92.8 Other abnormal and inconclusive findings on diagnostic imaging of breast (principal); Z78.0 Asymptomatic menopausal state; Z90.722 Acquired absence of ovaries, bilateral; R92.323 Mammographic fibroglandular density, bilateral breasts
CPT/HCPCS: 77062; 77066